=== PATIENT | female | born 1945 | race Caucasian/White ===

== ENCOUNTER 2016-10-08 03:32 | Emergency (ER) | payer BC, MEDICARE ==
[2016-10-08 03:55] VITALS: BP 146/94
--- NOTE | 2016-10-08 04:30 | EDM.PDOC ---
ED HPI GENERAL MEDICAL PROBLEM - General Chief Complaint: Cardiovascular Problem Stated Complaint: HIGH BLOOD PRESSURE Time Seen by Provider: 10/08/16 03:39 Source of Information: Reports: Patient History Limitations: Reports: No Limitations - History of Present Illness INITIAL COMMENTS - FREE TEXT/NARRATIVE: The patient presents with a headache, neck pain and elevated blood pressure. She says for a few days she has had left sided neck pain and bilateral protestant headache. She was pulling some weeds a few days ago and she thinks that may be the cause. She took some zyrtec before bed and this morning she woke up with the headache, neck pain and her BP was high in the high 140s systolic. Here her BP was 146/94. She thought she may be having a stroke and came in to be evaluated. She denies, fever, chills, cough, congestion, shortness of breath, nausea or vomiting. She has a little pain to her right chest. She fell a few days ago on vacation while sitting in a folding chair and hit her chest. She has no visual changes, numbness or weakness. She feels much better now. Onset: gradual Duration: Day(s): Location: Reports: head, neck Quality: Reports: Sharp Severity: moderate Improves with: Reports: None Worsens with: Reports: None Associated Symptoms: Reports: chest pain (Right side from a fall), headaches. Denies: cough, fever/chills, nausea/vomiting, shortness of breath, weakness Head Pain Score (Numeric/FACES): 5 Neck Pain Score (Numeric/FACES): 3 Right Breast Pain Score (Numeric/FACES): 1 - Related Data Allergies Allergy/AdvReac Type Severity Reaction Status Date / Time Penicillins Allergy Hives Verified 10/08/16 03:46 sulfanilamide [Sulfanilamide] Allergy Hives Verified 03/13/15 07:21 Home Meds: Home Meds Levothyroxine 25 mcg PO DAILY 11/09/13 [History] Simvastatin [Simvastatin] 20 mg PO DAILY 11/09/13 [History] Cetirizine [ZyrTEC] 10 mg PO DAILY PRN 03/13/15 [History] Ranitidine [Zantac] 150 mg PO BID #60 tab 03/13/15 [Rx] ALPRAZolam [Xanax] 0.5 mg PO BEDTIME PRN 10/08/16 [History] Past Medical History Cardiovascular History: Reports: High cholesterol Endocrine/Metabolic History: Reports: Hyperthyroidism - Past Surgical History GI Surgical History: Reports: Colonoscopy Social & Family History - Tobacco Use Smoking Status *Q: Former Smoker Years of Tobacco use: 10 Used Tobacco, but Quit: No Second Hand Smoke Exposure: Yes - Alcohol Use Days Per Week of Alcohol Use: 0 - Recreational Drug Use Recreational Drug Use: No ED ROS GENERAL - Review of Systems Review Of Systems: See Below Constitutional: Reports: No Symptoms HEENT: Reports: No Symptoms Respiratory: Reports: No Symptoms Cardiovascular: Reports: No Symptoms Endocrine: Reports: No Symptoms GI/Abdominal: Reports: No Symptoms : Reports: No Symptoms Musculoskeletal: Reports: Neck Pain Skin: Reports: No Symptoms Neurological: Reports: Headache ED EXAM, GENERAL - Physical Exam Exam: See Below Exam Limited By: No Limitations General Appearance: Alert, No Apparent Distress Ears: Normal External Exam Nose: Normal Inspection Head: Atraumatic, Normocephalic, Other (no temporal tenderness) Neck: Non-Tender, Other (When she looks to the right she has some pain) Respiratory/Chest: No Respiratory Distress, Lungs Clear, Normal Breath Sounds Cardiovascular: Regular Rate, Rhythm, No Edema, No Murmur GI/Abdominal: Soft, Non-Tender, No Organomegaly, No Mass Back Exam: Normal Inspection Extremities: Normal Inspection Neurological: Alert, Oriented, No Motor/Sensory Deficits Skin Exam: Warm, Dry EKG INTERPRETATION EKG Date: 10/08/16 Time: 04:01 Rhythm: NSR Rate (beats/min): 79 [place]: normal P-wave: present QRS: normal ST-T: normal QT: normal Course - Vital Signs Last Recorded V/S: Last Vital Signs Temp 98.5 F 10/08/16 03:42 Pulse 78 10/08/16 03:54 Resp 18 10/08/16 03:54 BP 146/94 H 10/08/16 03:54 Pulse Ox 96 10/08/16 03:54 - Orders/Labs/Meds Orders: Active Orders 24 hr Category Date Time Status Cardiac Monitoring [RC] . DIRECTED Care 10/08/16 04:13 Active EKG 12 Lead [EKG Documentation Completion] [RC] STAT Care 10/08/16 03:58 Active Labs: Laboratory Tests 10/08/16 10/08/1617 Range/Units 04:20 04:20 04:20 WBC 4.40 (3.98-10.04) K/mm3 RBC 4.54 (3.98-5.22) M/mm3 Hgb 13.3 (11.2-15.7) gm/L Hct 41.5 (34.1-44.9) % MCV 91.4 (79.4-94.8) fl MCH 29.3 (25.6-32.2) pg MCHC 32.0 L (32.2-35.5) g/dl RDW Std Deviation 46.0 (36.4-46.3) fL Plt Count 189 (182-369) K/mm3 MPV 9.9 (9.4-12.3) fl Neut % (Auto) 38.0 (34.0-71.1) % Lymph % (Auto) 49.5 (19.3-51.7) % [place]ukes % (Auto) 6.8 (4.7-12.5) % Eos % (Auto) 4.8 (0.7-5.8) Baso % (Auto) 0.7 (0.1-1.2) % Neut # (Auto) 1.67 (1.56-6.13) K/mm3 Lymph # (Auto) 2.18 (1.18-3.74) K/mm3 [place]ukes # (Auto) 0.30 (0.24-0.36) K/mm3 Eos # (Auto) 0.21 (0.04-0.36) K/mm3 Baso # (Auto) 0.03 (0.01-0.08) K/mm3 ESR 7 (0-20) mm/hr Sodium 141 (136-145) mEq/L Potassium 3.9 (3.5-5.1) mEq/L Chloride 107 (98-107) mEq/L Carbon Dioxide 28 (21-32) mEq/L Anion Gap 9.9 (5-15) BUN 18 (7-18) mg/dL Creatinine 0.8 (0.55-1.02) mg/dL Est Cr Clr Drug Dosing TNP Estimated GFR (MDRD) > 60 (>60) mL/min BUN/Creatinine Ratio 22.5 H (14-18) Glucose 105 (80-115) mg/dL Calcium 8.5 (8.5-10.1) mg/dL Total Bilirubin 0.3 (0.2-1.0) mg/dL AST 11 L (15-37) U/L ALT 21 (14-59) U/L Alkaline Phosphatase 63 (46-116) U/L Troponin I < 0.017 (0.00-0.056) ng/mL C-Reactive Protein < 0.2 (<1.0) mg/dL Total Protein 6.4 (6.4-8.2) g/dl Albumin 3.5 (3.4-5.0) g/dl Globulin 2.9 gm/dL Albumin/Globulin Ratio 1.2 (1-2) - Re-Assessments/Exams Free Text/Narrative Re-Assessment/Exam: 10/08/16 04:31 I ordered an EKG that showed a NSR with no acute changes. I will get some labs. She did not want a CT of her head. 10/08/16 05:22 Her CBC and CMP look good. Her CRP and sed rate are normal. Her BP is better and she feels better. I will discharge her home. Departure - Departure Time of Disposition: 17:25 Disposition: Home, Self-Care 01 Condition: good Clinical Impression: Neck pain Headache Qualifiers: Headache type: unspecified Headache chronicity pattern: acute headache Intractability: not intractable Qualified Code(s): R51 - Headache Referrals: Chris Robison MD [Primary Care Provider] - 1 Week Forms: ED Department Discharge, Return to Work/School Form Additional Instructions: Take your medication as prescribed. Follow up with your doctor in 1 week. Please return if you are worse. - My Orders Last 24 Hours: My Active Orders 10/08/16 03:58 EKG 12 Lead [EKG Documentation Completion] [RC] STAT 10/08/16 04:13 Cardiac Monitoring [RC] . DIRECTED - Assessment/Plan Last 24 Hours: My Active Orders 10/08/16 03:58 EKG 12 Lead [EKG Documentation Completion] [RC] STAT 10/08/16 04:13 Cardiac Monitoring [RC] . DIRECTED
== END 2016-10-08 05:35 | disposition home or self-care (01) ==
LOC: JD.ED 03:32
DX: M54.2 Cervicalgia (principal); R51 Headache; E78.00 Pure hypercholesterolemia, unspecified; E05.90 Thyrotoxicosis, unspecified without thyrotoxic crisis or storm; Z79.899 Other long term (current) drug therapy; Z88.2 Allergy status to sulfonamides; Z88.0 Allergy status to penicillin; Z87.891 Personal history of nicotine dependence
CPT/HCPCS: 36415; 80053; 84484; 85025; 85652; 86140; 93005; 99283; 99284-25

== ENCOUNTER 2016-10-10 21:22 | Emergency (ER) | payer BC, MEDICARE ==
[2016-10-10 21:52] VITALS: BP 168/103
--- NOTE | 2016-10-11 00:27 | EDM.PDOC ---
ED HPI GENERAL MEDICAL PROBLEM - General Chief Complaint: Headache Stated Complaint: HIGH BLOOD PRESSURE HEADACHE Time Seen by Provider: 10/10/16 21:44 Source of Information: Reports: Patient, Family (), RN Notes Reviewed History Limitations: Reports: No Limitations - History of Present Illness INITIAL COMMENTS - FREE TEXT/NARRATIVE: The patient states that she was seen in this ED 10/08/2016 for elevated blood pressure along with pressure felt at the back of her head, and generalized exhaustion. Medical records indicate that her blood pressure was 146/94. She was concerned that she was having a stroke. Workup included a CBC , CMP, troponin, CRP, ESR, and an ECG. All were unremarkable. Without treatment, the patient's symptoms resolved, and she was discharged home. She now returns complaining of a throbbing headache for about 45 minutes, pain in her posterior neck for about a week, and the sensation of being out of breath on and off for several days. Her dyspnea is not exertional; she and her walked about 1 mile today without difficulty, and she ordinarily walks about 3 miles a day without problems. No recent fever, although she has felt some chills. She feels shaky. No chest pain or palpitations. No nausea, vomiting, constipation, or diarrhea, although she does report some indigestion. Her initial blood pressure is 168/103 with a heart rate of 109 bpm. She states that she does not have a history of hypertension, and is not on an antihypertensive medication. She has a history of anxiety disorder and takes Xanax as needed. She has been on Xanax for about 20 years. 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 Neck Pain Score (Numeric/FACES): 8 - Related Data Allergies Allergy/AdvReac Type Severity Reaction Status Date / Time Penicillins Allergy Hives Verified 10/10/16 21:43 sulfanilamide [Sulfanilamide] Allergy Hives Verified 10/10/16 21:43 Home Meds: Home Meds Levothyroxine 25 mcg PO DAILY 11/09/13 [History] Simvastatin [Simvastatin] 20 mg PO DAILY 11/09/13 [History] Cetirizine [ZyrTEC] 10 mg PO DAILY PRN 03/13/15 [History] ALPRAZolam [Xanax] 0.5 mg PO BEDTIME PRN 10/08/16 [History] Ranitidine [Zantac] 150 mg PO BID PRN 10/10/16 [History] Past Medical History HEENT History: Reports: Allergic Rhinitis Cardiovascular History: Reports: High Cholesterol Gastrointestinal History: Reports: GERD 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[employer]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: Reports: Ectopic Psychiatric History: Reports: Anxiety Endocrine/Metabolic History: Reports: Hypothyroidism - Past Surgical History HEENT Surgical History: Reports: Tonsillectomy GI Surgical History: Reports: Colonoscopy Female Surgical History: Reports: D&C (x 1), Other (See Below) (Ectopic ) Social & Family History - Family History Respiratory: Reports: COPD, Interstitial Lung Disease Neurological: Reports: Cerebral Aneurysms, CVA Oncologic: Reports: Brain - Tobacco Use Smoking Status *Q: Former Smoker Tobacco Use Within Last Twelve Months: No Years of Tobacco use: 20 Packs/Tins Daily: 0.5 Used Tobacco, but Quit: Yes Month Tobacco Last Used: 08/1976 Second Hand Smoke Exposure: Yes - Caffeine Use Caffeine Use: Reports: Coffee - Alcohol Use Alcohol Use History: Yes Days Per Week of Alcohol Use: 0 Alcohol Use Frequency: Socially - Recreational Drug Use Recreational Drug Use: No - Living Situation & Occupation Living situation: Reports: , with Spouse Occupation: Employed ([email or web address] at [employer]) ED ROS GENERAL - Review of Systems Review Of Systems: See Below Constitutional: Reports: No Symptoms HEENT: Reports: No Symptoms Respiratory: Reports: No Symptoms Cardiovascular: Reports: No Symptoms Endocrine: Reports: No Symptoms GI/Abdominal: Reports: Diarrhea (Occasional), Nausea (Occasional), Vomiting ( Occasional) : Reports: No Symptoms Musculoskeletal: Reports: No Symptoms Skin: Reports: No Symptoms Neurological: Reports: No Symptoms Psychiatric: Reports: No Symptoms Hematologic/Lymphatic: Reports: No Symptoms Immunologic: Reports: No Symptoms ED EXAM, GENERAL - Physical Exam Exam: See Below Exam Limited By: No Limitations General Appearance: Alert, WD/WN, No Apparent Distress, Anxious Eye Exam: Bilateral Eye: Normal Inspection Ears: Normal External Exam, Normal Canal, Hearing Grossly Normal, Normal TMs Ear Exam: Bilateral Ear: Auricle Normal, Canal Normal, TM normal Nose: Normal Inspection, Normal Mucosa, No Blood Throat/Mouth: Normal Inspection, Normal Lips, Normal Teeth, Normal Gums, Normal Oropharynx, Normal Voice, No Airway Compromise Head: Atraumatic, Normocephalic Neck: Normal Inspection, Supple, Non-Tender, Full Range of Motion Respiratory/Chest: No Respiratory Distress, Lungs Clear, Normal Breath Sounds, No Accessory Muscle Use Cardiovascular: Normal Peripheral Pulses, Regular Rate, Rhythm, No Gallop, No JVD, No Murmur, No Rub Peripheral Pulses: 4+: Radial (L), Radial (R) GI/Abdominal: Normal Bowel Sounds, Soft, Non-Tender, No Organomegaly, No Distention, No Abnormal Bruit, No Mass (Female) Exam: Deferred Rectal (Female) Exam: Deferred Back Exam: Normal Inspection, Full Range of Motion, NT Extremities: Normal Inspection, Normal Range of Motion, No Pedal Edema, Normal Capillary Refill Neurological: Alert, Oriented, Normal Cognition, No Motor/Sensory Deficits Psychiatric: Normal Affect, Anxious Skin Exam: Warm, Dry, Intact, Normal Color, No Rash Lymphatic: No Adenopathy EKG INTERPRETATION EKG Date: 10/10/16 Time: 22:17 Rhythm: NSR Rate (beats/min): 93 [place]: normal P-wave: present QRS: normal ST-T: normal QT: normal Comparison: no change (10/08/2016) Course - Vital Signs Last Recorded V/S: Last Vital Signs Temp 36.1 C 10/10/16 21:46 Pulse 109 H 10/10/16 21:46 Resp 16 10/10/16 21:46 BP 168/103 H 10/10/16 21:46 Pulse Ox 96 10/10/16 21:46 Orthostatic Blood Pressure [ 155/99 Standing] Orthostatic Blood Pressure [ 170/102 Sitting] Orthostatic Blood Pressure [ 147/92 Supine] - Orders/Labs/Meds Orders: Active Orders 24 hr Category Date Time Status EKG Documentation Completion [RC] STAT Care 10/10/16 21:59 Active Orthostatic Vital Signs [RC] STAT Care 10/10/16 21:59 Active Orthostatic Vital Signs [RC] STAT Care 10/11/16 00:58 Active Chest 2V [CR] Stat Exams 10/10/16 21:59 Taken Labs: Laboratory Tests 10/10/16 10/10/16 10/10/16 Range/Units 21:20 22:15 22:15 WBC 5.38 (3.98-10.04) K/mm3 RBC 4.46 (3.98-5.22) M/mm3 Hgb 13.3 (11.2-15.7) gm/L Hct 40.9 (34.1-44.9) % MCV 91.7 (79.4-94.8) fl MCH 29.8 (25.6-32.2) pg MCHC 32.5 (32.2-35.5) g/dl RDW Std Deviation 46.0 (36.4-46.3) fL Plt Count 199 (182-369) K/mm3 MPV 10.1 (9.4-12.3) fl Neutrophils % (Manual) 39 L (40-60) % Band Neutrophils % 0 (0-10) % Lymphocytes % (Manual) 52 H (20-40) % Monocytes % (Manual) 2 (2-10) % Eosinophils % (Manual) 7 H (0.7-5.8) % Basophils % (Manual) 0 L (0.1-1.2) Platelet Estimate Adequate RBC Morph Comment Normal PT 10.3 (8.0-13.0) SECONDS INR 0.95 APTT 25 (22-36) SECONDS D-Dimer, Quantitative 0.40 (0.19-0.59) mg/L Puncture Site Lt radial ABG pH 7.44 (7.35-7.45) ABG pCO2 38.4 (35.0-45.0) mmHg ABG pO2 64.0 L (80.0-100.0) mmHg ABG HCO3 25.6 (22.0-26.0) meq/L ABG O2 Saturation 94.4 L (96.0-97.0) % ABG Base Excess 2.0 (-2-2.0) Cal Test Positive A-a Gradient 22 mmHg O2 Delivery Device Room air FiO2 21.00 (21.00-100.00) % Sodium (136-145) mEq/L Potassium (3.5-5.1) mEq/L Chloride (98-107) mEq/L Carbon Dioxide (21-32) mEq/L Anion Gap (5-15) BUN (7-18) mg/dL Creatinine (0.55-1.02) mg/dL Est Cr Clr Drug Dosing mL/min Estimated GFR (MDRD) (>60) mL/min BUN/Creatinine Ratio (14-18) Glucose (80-115) mg/dL Calcium (8.5-10.1) mg/dL Magnesium (1.8-2.4) mg/dl Total Bilirubin (0.2-1.0) mg/dL AST (15-37) U/L ALT (14-59) U/L Alkaline Phosphatase (46-116) U/L Troponin I (0.00-0.056) ng/mL B-Natriuretic Peptide (0-100) pg/mL Total Protein (6.4-8.2) g/dl Albumin (3.4-5.0) g/dl Globulin gm/dL Albumin/Globulin Ratio (1-2) TSH 3rd Generation (0.358-3.74) uIU/mL Urine Color (Yellow) Urine Appearance (Clear) Urine pH (5.0-8.0) Ur Specific [place] (1.005-1.030) Urine Protein (Negative) Urine Glucose (UA) (Negative) Urine Ketones (Negative) Urine Occult Blood (Negative) Urine Nitrite (Negative) Urine Bilirubin (Negative) Urine Urobilinogen (0.2-1.0) Ur Leukocyte Esterase (Negative) Urine RBC (0-5) /hpf Urine WBC (0-5) /hpf Ur Epithelial Cells (0-5) /hpf Urine Bacteria (FEW) /hpf Urine Mucus (FEW) /hpf 10/10/16 10/10/16 10/10/16 Range/Units 22:15 22:15 23:09 WBC (3.98-10.04) K/mm3 RBC (3.98-5.22) M/mm3 Hgb (11.2-15.7) gm/L Hct (34.1-44.9) % MCV (79.4-94.8) fl MCH (25.6-32.2) pg MCHC (32.2-35.5) g/dl RDW Std Deviation (36.4-46.3) fL Plt Count (182-369) K/mm3 MPV (9.4-12.3) fl Neutrophils % (Manual) (40-60) % Band Neutrophils % (0-10) % Lymphocytes % (Manual) (20-40) % Monocytes % (Manual) (2-10) % Eosinophils % (Manual) (0.7-5.8) % Basophils % (Manual) (0.1-1.2) Platelet Estimate RBC Morph Comment PT (8.0-13.0) SECONDS INR APTT (22-36) SECONDS D-Dimer, Quantitative (0.19-0.59) mg/L Puncture Site ABG pH (7.35-7.45) ABG pCO2 (35.0-45.0) mmHg ABG pO2 (80.0-100.0) mmHg ABG HCO3 (22.0-26.0) meq/L ABG O2 Saturation (96.0-97.0) % ABG Base Excess (-2-2.0) Cal Test A-a Gradient mmHg O2 Delivery Device FiO2 (21.00-100.00) % Sodium 142 (136-145) mEq/L Potassium 3.9 (3.5-5.1) mEq/L Chloride 108 H (98-107) mEq/L Carbon Dioxide 28 (21-32) mEq/L Anion Gap 9.9 (5-15) BUN 15 (7-18) mg/dL Creatinine 1.0 (0.55-1.02) mg/dL Est Cr Clr Drug Dosing 40.07 mL/min Estimated GFR (MDRD) 55 (>60) mL/min BUN/Creatinine Ratio 15.0 (14-18) Glucose 121 H (80-115) mg/dL Calcium 8.6 (8.5-10.1) mg/dL Magnesium 2.0 (1.8-2.4) mg/dl Total Bilirubin 0.2 (0.2-1.0) mg/dL AST 14 L (15-37) U/L ALT 20 (14-59) U/L Alkaline Phosphatase 66 (46-116) U/L Troponin I < 0.017 (0.00-0.056) ng/mL B-Natriuretic Peptide 18 (0-100) pg/mL Total Protein 6.7 (6.4-8.2) g/dl Albumin 3.7 (3.4-5.0) g/dl Globulin 3.0 gm/dL Albumin/Globulin Ratio 1.2 (1-2) TSH 3rd Generation 5.209 H (0.358-3.74) uIU/mL Urine Color Yellow (Yellow) Urine Appearance Clear (Clear) Urine pH 7.0 (5.0-8.0) Ur Specific [place] 1.020 (1.005-1.030) Urine Protein Negative (Negative) Urine Glucose (UA) Negative (Negative) Urine Ketones Negative (Negative) Urine Occult Blood Negative (Negative) Urine Nitrite Negative (Negative) Urine Bilirubin Negative (Negative) Urine Urobilinogen 0.2 (0.2-1.0) Ur Leukocyte Esterase Trace H (Negative) Urine RBC Not seen (0-5) /hpf Urine WBC 0-5 (0-5) /hpf Ur Epithelial Cells 0-5 (0-5) /hpf Urine Bacteria Few (FEW) /hpf Urine Mucus Not seen (FEW) /hpf Meds: Medications Discontinued Medications Generic Name Dose Route Start Last Admin Trade Name Freq PRN Reason Stop Dose Admin Sodium Chloride 500 mls @ 1,000 mls/hr 10/11/16 00:58 10/11/16 01:15 Normal Saline IV 10/11/16 01:27 1,000 mls/hr .BOLUS ONE Administration - Radiology Interpretation Free Text/Narrative:: Two-view chest radiograph appears to be grossly normal. Cardiac silhouette is within normal limits. No pulmonary vascular congestion. No pleural effusions. No focal infiltrate. No pneumothorax. Formal read per the Radiologist pending. - Re-Assessments/Exams Free Text/Narrative Re-Assessment/Exam: 10/11/16 00:57 While the patient's blood pressure elin from a supine to standing, her heart rate increased by 37 bpm, indicating orthostasis. I will give a 500 mL bolus and recheck the orthostatics. 10/11/16 02:04 Following a 500 mL bolus of normal saline, repeat orthostatics are negative. 10/11/16 02:28 Test results discussed with the patient and her . The patient's oxygen saturation has been noted to be about 98%, concerning for hyperventilation, which is usually caused by anxiety, although can be caused by a variety of medical conditions including metabolic acidosis, hypocalcemia, hypoglycemia, hyperthyroidism, liver failure, severe anemia, sepsis, acute coronary event, pneumothorax, pneumonia, dysrhythmia, PE, and CHF. These have been ruled out. I believe the patient has an inadequately treated anxiety disorder. I am not recommending that she precipitously discontinue her Xanax, but I am recommending that she discuss with her PCP treatment options and eventual discontinuation of Xanax. We also discussed the topic of hypertension. It does not appear that the patient has clinical hypertension, however, I discussed how she should properly measure itd if she wants to check it. Departure - Departure Time of Disposition: 02:30 Disposition: Home, Self-Care 01 Condition: good Clinical Impression: Elevated TSH - Discharge Information Referrals: Chris Robison MD [Primary Care Provider] - Forms: ED Department Discharge Additional Instructions: You were seen in the emergency room for elevated blood pressure, a headache, a sore neck, and feeling out of breath. Workup in the ER included blood work, an ABG, a urinalysis, an ECG, a chest x- ray, and positional blood pressure checked. Your workup was remarkable for a mildly elevated TSH level of 5.209, and your orthostatics were positive, indicating intravascular depletion. Your orthostatics resolved after an IV fluid bolus. We recommend that you try to stay adequately hydrated. Your symptoms are MOST LIKELY due to inadequately treated anxiety. We recommend that you discuss with your PCP long-term treatment options, such as an SSRI, and eventual discontinuation of Xanax. It does not appear that you have hypertension, however, if you want to check your blood pressure, it should be done under restful conditions, 2-3 times a week, for 2-3 weeks. If any other problems, please do not hesitate to return to the ER. - My Orders Last 24 Hours: My Active Orders 10/10/16 21:59 EKG Documentation Completion [RC] STAT Orthostatic Vital Signs [RC] STAT Chest 2V [CR] Stat 10/11/16 00:58 Orthostatic Vital Signs [RC] STAT - Assessment/Plan Last 24 Hours: My Active Orders 10/10/16 21:59 EKG Documentation Completion [RC] STAT Orthostatic Vital Signs [RC] STAT Chest 2V [CR] Stat 10/11/16 00:58 Orthostatic Vital Signs [RC] STAT
[2016-10-11] MEDS ORDERED: Sodium Chloride 0.9% 500 ML IV ONE (00:58)
--- NOTE | 2016-10-11 09:49 | CR ---
Chest: Two views of the chest were obtained. Comparison: Previous chest x-ray of 03/13/15. Heart size is normal. Prominent tortuosity of the thoracic aorta is seen. Minimal atelectasis is noted within the lateral right costophrenic angle. Lungs otherwise are clear. Bony structures are unremarkable for the patient's age. On the lateral view, lungs are hyperinflated compatible with emphysematous change. Impression: 1. Emphysematous change. Other incidental findings. Nothing acute is identified. Diagnostic code #2
== END 2016-10-11 02:50 | disposition home or self-care (01) ==
LOC: JD.ED 21:22
DX: R94.6 Abnormal results of thyroid function studies (principal); K21.9 Gastro-esophageal reflux disease without esophagitis; E03.9 Hypothyroidism, unspecified; E78.00 Pure hypercholesterolemia, unspecified; F41.9 Anxiety disorder, unspecified; Z88.0 Allergy status to penicillin; Z79.899 Other long term (current) drug therapy; Z87.891 Personal history of nicotine dependence
CPT/HCPCS: 36415; 36600; 71020; 80053; 81001; 82803; 83735; 83880; 84443; 84484; 85025; 85379; 85610; 85730; 93005; 99284; J7040; 99283

== ENCOUNTER 2018-08-21 19:36 | Emergency (ER) | payer BC, MEDICARE ==
[2018-08-21 19:48] VITALS: BP 153/89
[2018-08-21] MEDS ORDERED: Dextrose 5%-Lactated Ringers 1,000 ML IV SCH (20:00)
[2018-08-21] MEDS ORDERED: cefOXitin 2 GM in Premix Bag 1 BAG IV ONE (20:09)
--- NOTE | 2018-08-21 20:10 | EDM.PDOC ---
ED HPI GENERAL MEDICAL PROBLEM - General Chief Complaint: Cardiovascular Problem Stated Complaint: HEART PALPATATIONS Time Seen by Provider: 08/21/18 19:50 Source of Information: Reports: Patient, Family (spouse) History Limitations: Reports: No Limitations - History of Present Illness INITIAL COMMENTS - FREE TEXT/NARRATIVE: 72-year-old female presents to the ED in the accompaniment of her . She reports that she developed palpitations with feeling of her heart causing and skipping beats tonight after taking first dose of Flagyl and Cipro. This medication was prescribed after diagnosis of acute diverticulitis identified on CT today. He has had diffuse left lower abdominal pain for the better part of 3 days. She thinks that she's been eating adequately. She has not had any diarrhea. She feels more constipated involvements are very painful. She has a significant pressure in the rectum pick your feel like if she could have a good bowel movement it would make the pain go away. Ventriculitis at least once in the past. Been bothered by palpitations off and on for the last several months. She's had investigation by way of Holter monitor thyroid function studies with no positive findings. Palpitations were bad enough to make her dizzy or lightheaded or short of breath. He did make her well aware of irregularities in her chest which created some degree of anxiety. Onset: Today Onset Date: 08/21/18 Onset Time: 18:00 Duration: Hour(s): Location: Reports: Chest (Palpitations with filling of heart skipping and causing at times.) Quality: Reports: Other Severity: Moderate (No associated pain) Improves with: Reports: None Worsens with: Reports: None Context: Denies: Activity, Exercise, Lifting, Sick Contact, Trauma, Other Associated Symptoms: Reports: Fever/Chills, Loss of Appetite, Malaise. 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 (see below) (None.) Lower Abdominal Pain Score (Numeric/FACES): 5 - Related Data Allergies Allergy/AdvReac Type Severity Reaction Status Date / Time Penicillins Allergy Hives Verified 08/21/18 19:48 sulfanilamide [Sulfanilamide] Allergy Hives Verified 08/21/18 19:48 Home Meds: Home Meds Levothyroxine 25 mcg PO DAILY 11/09/13 [History] Simvastatin 20 mg PO DAILY 11/09/13 [History] Cetirizine [ZyrTEC] 10 mg PO DAILY PRN 03/13/15 [History] ALPRAZolam [Xanax] 0.5 mg PO BEDTIME PRN 10/08/16 [History] Ranitidine [Zantac] 150 mg PO BID PRN 10/10/16 [History] Ciprofloxacin HCl [Cipro] 500 mg PO DAILY 08/21/18 [History] Clindamycin HCl 300 mg PO TID #21 capsule 08/21/18 [Rx] Metoprolol Tartrate 25 mg PO DAILY #30 tablet 08/21/18 [Rx] metroNIDAZOLE [Flagyl] 250 mg PO DAILY 08/21/18 [History] Past Medical History HEENT History: Reports: Allergic Rhinitis Cardiovascular History: Reports: High Cholesterol Gastrointestinal History: Reports: Diverticulosis, GERD 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: Ectopic Psychiatric History: Reports: Anxiety Endocrine/Metabolic History: Reports: Hypothyroidism - Past Surgical History HEENT Surgical History: Reports: Tonsillectomy GI Surgical History: Reports: Colonoscopy Female Surgical History: Reports: D&C, Other (See Below) Social & Family History - Family History Respiratory: Reports: COPD, Interstitial Lung Disease Neurological: Reports: Cerebral Aneurysms, CVA Oncologic: Reports: Brain - Tobacco Use Smoking Status *Q: Never Smoker - Caffeine Use Caffeine Use: Reports: Coffee - Recreational Drug Use Recreational Drug Use: No - Living Situation & Occupation Living situation: Reports: , with Spouse Occupation: Employed ([employer] at [employer]) [facility] - Review of Systems Review Of Systems: See Below Constitutional: Reports: Chills, Malaise, Weakness, Fatigue, Decreased Appetite HEENT: Reports: Glasses (Only for reading) Respiratory: Reports: No Symptoms Cardiovascular: Reports: No Symptoms Endocrine: Reports: No Symptoms GI/Abdominal: Reports: Abdominal Pain (Left lower quadrant abdominal pain gradually worsening over the last 3 days. Diagnosed with acute diverticulitis today by CT scan done here in our hospital.), Other (Rectal pressure discomfort. ) : Reports: No Symptoms Musculoskeletal: Reports: No Symptoms Skin: Reports: No Symptoms Neurological: Reports: No Symptoms Psychiatric: Reports: Anxiety Hematologic/Lymphatic: Reports: No Symptoms Immunologic: Reports: No Symptoms ED EXAM, GENERAL - Physical Exam Exam: See Below Exam Limited By: No Limitations General Appearance: Alert, WD/WN, Anxious, Other (However hands are cool to touch.) Eye Exam: Bilateral Eye: Normal Inspection Throat/Mouth: Normal Inspection, Normal Lips, Normal Oropharynx, Other Head: Atraumatic, Normocephalic (Tongue is only slightly dry.) Neck: Normal Inspection, Supple, Non-Tender, Full Range of Motion. No: Lymphadenopathy (L), Lymphadenopathy (R) Respiratory/Chest: No Respiratory Distress, Lungs Clear, Normal Breath Sounds, No Accessory Muscle Use Cardiovascular: Normal Peripheral Pulses, Regular Rate, Rhythm, No Edema, No Gallop, No Murmur, No Rub, Other (Occasional PACs identified on the monitor.) Peripheral Pulses: 2+: Posterior Tibial (L), Posterior Tibial (R), Dorsalis Pedis (L), Dorsalis Pedis (R), 3+: Carotid (L), Carotid (R) GI/Abdominal: Distended (Very slightly distended and mildly tympanitic to percussion.), Guarding (Throughout the left lower quadrant), Rebound (Has peritoneal signs in the left lower quadrant. Even light percussion in the left or quadrant causes exquisite pain.), Abnormal Bowel Sounds (Bowel sounds are decreased from the norm.) Back Exam: Normal Inspection, Full Range of Motion. No: CVA Tenderness (L), CVA Tenderness (R) Extremities: Normal Inspection, Normal Range of Motion, Non-Tender, No Pedal Edema Neurological: Alert, Oriented, CN II-XII Intact, Normal Cognition, Other. No: Normal Gait Psychiatric: Normal Affect (Walking bent over and slowly), Anxious Skin Exam: Warm, Dry, Intact, Normal Color, No Rash EKG INTERPRETATION EKG Date: 08/21/18 Time: 20:15 Rhythm: NSR Rate (Beats/Min): 88 [place]: Normal P-Wave: Present QRS: Normal ST-T: Normal QT: Normal EKG Interpretation Comments: Normal ECG. Course - Vital Signs Last Recorded V/S: Last Vital Signs Temp 36.6 C 08/21/18 19:44 Pulse 107 H 08/21/18 19:44 Resp 16 08/21/18 19:44 BP 153/89 H 08/21/18 19:44 Pulse Ox 95 08/21/18 19:44 - Orders/Labs/Meds Orders: Active Orders 24 hr Category Date Time Status EKG Documentation Completion [RC] STAT Care 08/21/18 20:09 Active Dextrose 5%-Lactated Ringers 1,000 ml Med 08/21/18 20:00 Active IV ASDIRECTED Medication Orders Dextrose/Lactated Ringer's (Dextrose 5%-Lactated Ringers) 1,000 mls @ 999 mls/ hr IV ASDIRECTED DHRUV Last Admin: 08/21/18 20:33 Dose: 999 mls/hr Labs: Laboratory Tests 08/21/18 08/21/18 Range/Units 20:45 20:45 WBC 9.10 (3.98-10.04) K/mm3 RBC 4.76 (3.98-5.22) M/mm3 Hgb 14.1 (11.2-15.7) gm/L Hct 43.0 (34.1-44.9) % MCV 90.3 (79.4-94.8) fl MCH 29.6 (25.6-32.2) pg MCHC 32.8 (32.2-35.5) g/dl RDW Std Deviation 45.8 (36.4-46.3) fL Plt Count 220 (182-369) K/mm3 MPV 10.3 (9.4-12.3) fl Neutrophils % (Manual) 71 H (40-60) % Band Neutrophils % 0 (0-10) % Lymphocytes % (Manual) 17 L (20-40) % Atypical Lymphs % 0 % Monocytes % (Manual) 11 H (2-10) % Eosinophils % (Manual) 1 (0.7-5.8) % Basophils % (Manual) 0 L (0.1-1.2) Platelet Estimate Adequate RBC Morph Comment Normal Sodium 142 (136-145) mEq/L Potassium 3.4 L (3.5-5.1) mEq/L Chloride 104 (98-107) mEq/L Carbon Dioxide 28 (21-32) mEq/L Anion Gap 13.4 (5-15) BUN 10 (7-18) mg/dL Creatinine 0.8 (0.55-1.02) mg/dL Est Cr Clr Drug Dosing TNP Estimated GFR (MDRD) > 60 (>60) mL/min BUN/Creatinine Ratio 12.5 L (14-18) Glucose 117 H (80-115) mg/dL Calcium 9.4 (8.5-10.1) mg/dL Magnesium 2.1 (1.8-2.4) mg/dl Total Bilirubin 0.6 (0.2-1.0) mg/dL AST 36 (15-37) U/L ALT 48 (14-59) U/L Alkaline Phosphatase 95 (46-116) U/L C-Reactive Protein 5.2 H* (<1.0) mg/dL Total Protein 7.3 (6.4-8.2) g/dl Albumin 3.5 (3.4-5.0) g/dl Globulin 3.8 gm/dL Albumin/Globulin Ratio 0.9 L (1-2) Meds: Medications Generic Name Dose Route Start Last Admin Trade Name Freq PRN Reason Stop Dose Admin Dextrose/Lactated Ringer's 1,000 mls @ 999 mls/hr 08/21/18 20:00 08/21/18 20: 33 Dextrose 5%-Lactated Ringers IV 999 mls/hr ASDIRECTED DHRUV Administration Discontinued Medications Generic Name Dose Route Start Last Admin Trade Name Freq PRN Reason Stop Dose Admin Hydromorphone HCl 0.5 mg 08/21/18 20:31 08/21/18 21:09 Dilaudid IVPUSH 08/21/18 20:32 0.5 mg ONETIME ONE Administration Cefoxitin Sodium 2 gm/ Premix 50 mls @ 100 mls/hr 08/21/18 20:09 08/21/18 20: 34 IV 08/21/18 20:38 100 mls/hr ONETIME ONE Administration Magnesium Citrate 240 ml 08/21/18 21:09 08/21/18 21:14 Citrate Of Magnesia PO 08/21/18 21:10 240 ml ONETIME ONE Administration Metoclopramide HCl 5 mg 08/21/18 20:31 08/21/18 21:08 Reglan IVPUSH 08/21/18 20:32 5 mg ONETIME ONE Administration - Radiology Interpretation Free Text/Narrative:: 72-year-old female presents to the ED due to palpitations that seemed to develop after she took her first dose of Cipro and Flagyl this afternoon before eating a little bit for supper. Appendectomy feeling well for the last 3 and half days was diagnosed by CT today of having acute diverticulitis have a look at the CT scan as it was done in our hospital. Her on Cipro 500 mg twice a day and Flagyl 500 mg 3 times a day of which she has taken 1 dose of each tablet. Associated fever but some chills. She did have lab work done to clinic and we' ll try and obtain these results. In the ED on the monitor she shows a few PACs. For the most part and is sinus rhythm in the high 80s. We did go up as high as 116/m but was sinus tachycardia in the ED. She does have peritoneal signs on palpation of her left hemiabdomen. Will give a dose of antibiotics --cefoxitin 2 g IV. Will try and bring up her labs on her cell phone. I will order CRP and serum magnesium levels. She reports thyroid functions been recently checked and is been normal. Holter monitor testing was also normal. We'll also give her 0.5 mg of Dilaudid with Reglan 5 mg IV for relief of abdominal pain. - Re-Assessments/Exams Free Text/Narrative Re-Assessment/Exam: 08/21/18 20:47 I have reviewed her CT of the abdomen and pelvis is done with oral and IV contrast earlier today. She has a cyst in each lobe of the liver. There are multiple parapelvic cysts in both kidneys. No stones identified. No calcified gallstones identified. Pancreas appears normal. Minimal hiatal hernia appreciated. The colon is stool-filled from cecum to the rectal vault. There is extensive diverticula involving the sigmoid and rectal colons. There is inflammatory changes around the rectum and lower sigmoid colon. No abscess formation is identified. Quite intensively there is a left lower lung mass seen appears stable from previous exam in size and configuration and measures about 1.6 cm. were finally able to view most her labs that were done at [facility] today. White count was 9.0 differential was not available. Hemoglobin is normal. Chemistry was normal as well. CRP was not done. Urinalysis was normal as well. 08/21/18 21:24 Labs are back revealing a total white count of 9.10. Differential 71% neutrophils and no band cells. Hemoglobin is 14.1 with hematocrit of 43.0. Platelet count is 220,000. Sodium 142 with potassium slightly low at 3.4. Chloride 104 bicarbonate 28. And a gap is 13.4. BUN is 10 with creatinine of 0.8. GFR remains greater than 60. Glucose is 117. Calcium is 9.4. He needs them is 2.1. Liver function normal C-reactive protein is elevated at 5.2. Total protein 7.3 with albumin fraction of 3.5. 08/21/18 21:55 Patient is still feeling quite dizzy and lightheaded and slightly nauseated after receiving Dilaudid 0.5 mg IV and Reglan 5 mg. Is to be very sensitive to narcotics. Patient is showing fairly frequent trigeminy quadrigeminy pattern of unifocal PVCs on the monitor. She is aware of these as well. I advise adopt a wait and see pattern. If they are persisting past 3 days then she can start metoprolol tartrate 25 mg once daily every morning to see if this brings him under control. Reassured by themselves they do not represent any serious underlying pathology. Secondly should be given magnesium citrate or 8 ounces of Citroma by mouth with 6 ounces of juice of choice to provide bowel cleanse. The entire colon is full of stool and CT notably is contributing to good deal to her current pain. Is important to get the oral contrast out of her system otherwise it will make the constipation worse. Antibiotic change was discontinue Flagyl since she seems to feel that was making her sick. Replace with clindamycin 300 mg 3 times a day for one week. She will continue the Cipro 500 mg twice a day. Follow-up with Dr. Robsion if any further problems occur. 08/21/18 22:14 patient's bowel started to move while she was in the ED before discharge. She's gone twice. Therefore will see how many times she goes further and whether or not she needs to take the Citroma when she gets home. I would suggest waiting until tomorrow morning. Still feeling quite ill from the effect of narcotic Dilaudid 0.5 mg meaning she is extremely sensitive to narcotics. She only received Reglan 5 mg IV as well. Departure - Departure Time of Disposition: 21:39 Disposition: Home, Self-Care 01 Condition: Fair Clinical Impression: Intermittent palpitations, Diverticulitis of sigmoid colon, Constipation by delayed colonic transit, Premature ventricular contractions Prescriptions: Clindamycin HCl 300 mg PO TID #21 capsule Metoprolol Tartrate 25 mg PO DAILY #30 tablet Instructions: Diverticulitis, [id number], Premature Ventricular Contraction, Constipation, Adult Referrals: Chris Robison MD [Primary Care Provider] - Forms: ED Department Discharge Additional Instructions: Evaluation in the emergency room tonight in regards to recognized palpitations or irregular beats today. They seem to be worse after taking metronidazole tablet which is started today for diverticulitis. In the ED the monitor did show frequent premature ventricular contractions all coming from a single focus in your heart. I themselves they mean nothing. The mesentery since. But he has a few of these and up to thousand and these per day but we noticed them if they come more frequently or close together. They may be showing up more today because you're sick due to underlying diverticulitis. I would adopt a wait and see approach if they continue over the next 3 days then you can be started on a medication called atenolol 25 mg once daily and this usually would keep them from coming. He represented no serious underlying heart disease however. Chased of your medications for diverticulitis. Flagyl or metronidazole is to be discontinued. Replace it with clindamycin 300 mg 3 times daily for the next 7 days starting tomorrow morning. You did receive a dose of antibiotic intravenously while in the ED due to significant pain appreciated on palpation and examination of ear left lower quadrant of abdomen. This medication was called cefoxitin. Continue Cipro twice daily and clindamycin 3 times daily to clear up diverticulitiis. The CT scan of the abdomen done earlier today does show significant constipation with the entire colon being filled with stool. Certainly will be aggravating her current abdominal pain and holding up the contrast that you drink earlier today. Therefore my suggestion would be to take magnesium citrate 8 ounces by mouth with 6 ounces of juice of choice to provide bowel cleanse. Usually it starts to work in an hour to an the bowels usually move 3 or 4 times ending with mild diarrhea. I suspect this will give a good relief of your abdominal pain as well. After this I would suggest taking MiraLAX powder 17 g or 1 scoop daily to prevent constipation from occurring again. Constipation is a major factor in the cause of diverticulitis. - My Orders Last 24 Hours: My Active Orders 08/21/18 20:00 Dextrose 5%-Lactated Ringers 1,000 ml IV ASDIRECTED 08/21/18 20:09 EKG Documentation Completion [RC] STAT - Assessment/Plan Last 24 Hours: My Active Orders 08/21/18 20:00 Dextrose 5%-Lactated Ringers 1,000 ml IV ASDIRECTED 08/21/18 20:09 EKG Documentation Completion [RC] STAT
[2018-08-21] MEDS ORDERED: Metoclopramide 10 MG/2 ML SDV IVPUSH ONE (20:31)
[2018-08-21] MEDS ORDERED: HYDROmorphone 1 MG/ML Syringe IVPUSH ONE (20:31)
[2018-08-21] MEDS ORDERED: Magnesium Citrate Solution 296 ML Bottle PO ONE (21:09)
== END 2018-08-21 22:10 | disposition home or self-care (01) ==
LOC: JD.ED 19:36
DX: I49.3 Ventricular premature depolarization (principal); K57.32 Diverticulitis of large intestine without perforation or abscess without bleeding; K59.01 Slow transit constipation; E03.9 Hypothyroidism, unspecified; F41.9 Anxiety disorder, unspecified; Z88.0 Allergy status to penicillin; Z88.2 Allergy status to sulfonamides; Z79.899 Other long term (current) drug therapy; Z98.890 Other specified postprocedural states
CPT/HCPCS: 36415; 80053; 83735; 85007; 85027; 86140; 93005; 96361; 96365; 96375; 99285; A9270; J0694; J1170; J2765; J7042; 93010

== ENCOUNTER 2018-09-14 15:27 | Emergency (ER) | payer BC, MEDICARE ==
[2018-09-14] MEDS ORDERED: Sodium Chloride 0.9% 1,000 ML IV SCH (16:00)
[2018-09-14 16:05] VITALS: BP 142/91
[2018-09-14] MEDS ORDERED: Acetaminophen 325 MG Tab PO ONE (16:37)
--- NOTE | 2018-09-14 16:55 | EDM.PDOC ---
ED HPI GENERAL MEDICAL PROBLEM - General Chief Complaint: Gastrointestinal Problem Stated Complaint: 102 FEVER/ LOWER BACK PAIN Time Seen by Provider: 09/14/18 15:47 Source of Information: Reports: Patient, RN Notes Reviewed - History of Present Illness INITIAL COMMENTS - FREE TEXT/NARRATIVE: 72 y/o female presents to ER with cc chills, fever and diarrhea that started yesterday. In addition, she has had lower back pain for the past 3 days. She was recently diagnosis with diverticulosis and was taking Clindamycin. She took this for 4.5 days and stopped 4 days ago because she was having diarrhea. She states her diarrhea resolved but came back again yesterday. She went to the clinic where they took her temperature and reported it was 102.0 and sent her here for further evaluation. She is accompanied by her . She is in no apparent distress. Onset Date: 09/13/18 Onset Time: 12:00 Duration: Getting Worse Location: Reports: Abdomen, Back Quality: Reports: Ache Severity: Mild Improves with: Reports: None Worsens with: Reports: None Associated Symptoms: Reports: Fever/Chills. Denies: Cough, Headaches, Nausea/ Vomiting, Shortness of Breath Left Lower Abdominal Pain Score (Numeric/FACES): 5 - Related Data Allergies Allergy/AdvReac Type Severity Reaction Status Date / Time Penicillins Allergy Hives Verified 09/14/18 15:45 sulfanilamide [Sulfanilamide] Allergy Hives Verified 09/14/18 15:45 Home Meds: Home Meds Levothyroxine 25 mcg PO DAILY 11/09/13 [History] Simvastatin 20 mg PO DAILY 11/09/13 [History] Cetirizine [ZyrTEC] 10 mg PO DAILY PRN 03/13/15 [History] ALPRAZolam [Xanax] 0.5 mg PO BEDTIME PRN 10/08/16 [History] Ranitidine [Zantac] 150 mg PO BID PRN 10/10/16 [History] Ciprofloxacin HCl [Cipro] 500 mg PO DAILY 08/21/18 [History] Clindamycin HCl 300 mg PO TID #21 capsule 08/21/18 [Rx] Metoprolol Tartrate 25 mg PO DAILY #30 tablet 08/21/18 [Rx] metroNIDAZOLE [Flagyl] 250 mg PO DAILY 08/21/18 [History] Ciprofloxacin [Cipro] 500 mg PO BID 3 Days #6 ml 09/14/18 [Rx] Vancomycin [First-Vancomycin 25 Compounding Kit] 125 mg PO QID 10 Days #40 bottle 09/14/18 [Rx] Past Medical History HEENT History: Reports: Allergic Rhinitis Cardiovascular History: Reports: High Cholesterol Gastrointestinal History: Reports: Diverticulosis, GERD 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 Psychiatric History: Reports: Anxiety Endocrine/Metabolic History: Reports: Hypothyroidism - Past Surgical History HEENT Surgical History: Reports: Tonsillectomy GI Surgical History: Reports: Colonoscopy Female Surgical History: Reports: D&C, Other (See Below) Social & Family History - Family History Respiratory: Reports: COPD, Interstitial Lung Disease Neurological: Reports: Cerebral Aneurysms, CVA Oncologic: Reports: Brain - Tobacco Use Smoking Status *Q: Never Smoker - Caffeine Use Caffeine Use: Reports: Coffee - Recreational Drug Use Recreational Drug Use: No - Living Situation & Occupation Living situation: Reports: , with Spouse 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 Denies: Decreased Appetite HEENT: Reports: No Symptoms Respiratory: Denies: Shortness of Breath Cardiovascular: Denies: Chest Pain Endocrine: Denies: Fatigue GI/Abdominal: Reports: Abdominal Pain, Diarrhea. Denies: Nausea, Vomiting : Reports: Dysuria Musculoskeletal: Reports: Back Pain (lower) Skin: Reports: No Symptoms Neurological: Reports: No Symptoms Psychiatric: Reports: No Symptoms Hematologic/Lymphatic: Reports: No Symptoms Immunologic: Reports: No Symptoms ED EXAM, GI/ABD - Physical Exam Exam: See Below Exam Limited By: No Limitations General Appearance: Alert, WD/WN, No Apparent Distress Respiratory/Chest: No Respiratory Distress, Lungs Clear, Normal Breath Sounds, No Accessory Muscle Use, Chest Non-Tender Cardiovascular: Normal Peripheral Pulses, Regular Rate, Rhythm, No Edema, No Gallop, No JVD, No Murmur, No Rub GI/Abdominal Exam: Normal Bowel Sounds, Soft, Non-Tender, No Organomegaly, No Distention, No Abnormal Bruit, No Mass, Pelvis Stable Back Exam: Normal Inspection, Full Range of Motion Extremities: Normal Inspection, Normal Range of Motion, Non-Tender, No Pedal Edema, Normal Capillary Refill Neurological: Alert, Oriented, CN II-XII Intact, Normal Cognition, Normal Gait, Normal Reflexes, No Motor/Sensory Deficits Psychiatric: Normal Affect, Normal Mood Skin Exam: Warm, Dry, Intact, Normal Color, No Rash Lymphatic: No Adenopathy Course - Vital Signs Last Recorded V/S: Last Vital Signs Temp 98.1 F 09/14/18 15:45 Pulse 113 H 09/14/18 15:45 Resp 16 09/14/18 15:45 BP 142/91 H 09/14/18 15:45 Pulse Ox 97 09/14/18 15:45 - Orders/Labs/Meds Orders: Active Orders 24 hr Category Date Time Status Blood Culture x2 Reflex Set [OM.PC] Stat Oth 09/14/18 15:55 Ordered Isolation [COMM] Stat Oth 09/14/18 17:13 Ordered Isolation [COMM] Stat Oth 09/14/18 17:17 Ordered Labs: Laboratory Tests 09/14/18 09/14/18 09/14/18 Range/Units 16:58 16:58 16:58 WBC 9.11 (3.98-10.04) K/mm3 RBC 4.87 (3.98-5.22) M/mm3 Hgb 14.1 (11.2-15.7) gm/L Hct 43.6 (34.1-44.9) % MCV 89.5 (79.4-94.8) fl MCH 29.0 (25.6-32.2) pg MCHC 32.3 (32.2-35.5) g/dl RDW Std Deviation 45.3 (36.4-46.3) fL Plt Count 168 L (182-369) K/mm3 MPV 10.7 (9.4-12.3) fl Neut % (Auto) 84.0 H (34.0-71.1) % Lymph % (Auto) 10.0 L (19.3-51.7) % [place] % (Auto) 5.6 (4.7-12.5) % Eos % (Auto) 0.1 L (0.7-5.8) Baso % (Auto) 0.1 (0.1-1.2) % Neut # (Auto) 7.65 H (1.56-6.13) K/mm3 Lymph # (Auto) 0.91 L (1.18-3.74) K/mm3 [place] # (Auto) 0.51 H (0.24-0.36) K/mm3 Eos # (Auto) 0.01 L (0.04-0.36) K/mm3 Baso # (Auto) 0.01 (0.01-0.08) K/mm3 Sodium 141 (136-145) mEq/L Potassium 3.7 (3.5-5.1) mEq/L Chloride 104 (98-107) mEq/L Carbon Dioxide 25 (21-32) mEq/L Anion Gap 15.7 H (5-15) BUN 7 (7-18) mg/dL Creatinine 0.7 (0.55-1.02) mg/dL Est Cr Clr Drug Dosing 59.15 mL/min Estimated GFR (MDRD) > 60 (>60) mL/min BUN/Creatinine Ratio 10.0 L (14-18) Glucose 98 (80-115) mg/dL Calcium 9.0 (8.5-10.1) mg/dL Magnesium 1.6 L (1.8-2.4) mg/dl Total Bilirubin 0.5 (0.2-1.0) mg/dL AST 18 (15-37) U/L ALT 31 (14-59) U/L Alkaline Phosphatase 74 (46-116) U/L Total Protein 6.8 (6.4-8.2) g/dl Albumin 3.8 (3.4-5.0) g/dl Globulin 3.0 gm/dL Albumin/Globulin Ratio 1.3 (1-2) Urine Color (Yellow) Urine Appearance (Clear) Urine pH (5.0-8.0) Ur Specific Linch (1.005-1.030) Urine Protein (Negative) Urine Glucose (UA) (Negative) Urine Ketones (Negative) Urine Occult Blood (Negative) Urine Nitrite (Negative) Urine Bilirubin (Negative) Urine Urobilinogen (0.2-1.0) Ur Leukocyte Esterase (Negative) Urine RBC (0-5) /hpf Urine WBC (0-5) /hpf Ur Epithelial Cells (0-5) /hpf Amorphous Sediment (NOT SEEN) /hpf Urine Bacteria (FEW) /hpf Urine Mucus (FEW) /hpf C.difficile [id number]-[id number] C. difficile Tox (PCR) 04/18/19 04/18/19 Range/Units 17:10 17:10 WBC (3.98-10.04) K/mm3 RBC (3.98-5.22) M/mm3 Hgb (11.2-15.7) gm/L Hct (34.1-44.9) % MCV (79.4-94.8) fl MCH (25.6-32.2) pg MCHC (32.2-35.5) g/dl RDW Std Deviation (36.4-46.3) fL Plt Count (182-369) K/mm3 MPV (9.4-12.3) fl Neut % (Auto) (34.0-71.1) % Lymph % (Auto) (19.3-51.7) % [place] % (Auto) (4.7-12.5) % Eos % (Auto) (0.7-5.8) Baso % (Auto) (0.1-1.2) % Neut # (Auto) (1.56-6.13) K/mm3 Lymph # (Auto) (1.18-3.74) K/mm3 [place] # (Auto) (0.24-0.36) K/mm3 Eos # (Auto) (0.04-0.36) K/mm3 Baso # (Auto) (0.01-0.08) K/mm3 Sodium (136-145) mEq/L Potassium (3.5-5.1) mEq/L Chloride (98-107) mEq/L Carbon Dioxide (21-32) mEq/L Anion Gap (5-15) BUN (7-18) mg/dL Creatinine (0.55-1.02) mg/dL Est Cr Clr Drug Dosing mL/min Estimated GFR (MDRD) (>60) mL/min BUN/Creatinine Ratio (14-18) Glucose (80-115) mg/dL Calcium (8.5-10.1) mg/dL Magnesium (1.8-2.4) mg/dl Total Bilirubin (0.2-1.0) mg/dL AST (15-37) U/L ALT (14-59) U/L Alkaline Phosphatase (46-116) U/L Total Protein (6.4-8.2) g/dl Albumin (3.4-5.0) g/dl Globulin gm/dL Albumin/Globulin Ratio (1-2) Urine Color Yellow (Yellow) Urine Appearance Clear (Clear) Urine pH 6.0 (5.0-8.0) Ur Specific Linch 1.015 (1.005-1.030) Urine Protein Negative (Negative) Urine Glucose (UA) Negative (Negative) Urine Ketones 2+ H (Negative) Urine Occult Blood 1+ H (Negative) Urine Nitrite Negative (Negative) Urine Bilirubin Negative (Negative) Urine Urobilinogen 0.2 (0.2-1.0) Ur Leukocyte Esterase Trace H (Negative) Urine RBC 5-10 H (0-5) /hpf Urine WBC 10-20 H (0-5) /hpf Ur Epithelial Cells 0-5 (0-5) /hpf Amorphous Sediment Few H (NOT SEEN) /hpf Urine Bacteria Few H (FEW) /hpf Urine Mucus Not seen (FEW) /hpf C.difficile [id number]-NAP1-B1 Presumptive negative C. difficile Tox (PCR) Positive H Meds: Medications Discontinued Medications Generic Name Dose Route Start Last Admin Trade Name Zia PRN Reason Stop Dose Admin Acetaminophen 650 mg 09/14/18 16:37 09/14/18 16:48 Tylenol PO 09/14/18 16:38 650 mg NOW ONE Administration Sodium Chloride 1,000 mls @ 250 mls/hr 09/14/18 16:00 09/14/18 16:30 Normal Saline IV 250 mls/hr ASDIRECTED DHRUV Administration Levofloxacin/Dextrose 500 mg/ 100 mls @ 100 mls/hr 09/14/18 18:19 09/14/18 18 :56 Premix IV 09/14/18 19:18 Not Given ONETIME ONE Ceftriaxone Sodium 2 gm/ 100 mls @ 200 mls/hr 09/14/18 18:46 09/14/18 18:55 Sodium Chloride IV 09/14/18 19:15 200 mls/hr ONETIME ONE Administration Magnesium Oxide 400 mg 09/14/18 17:51 09/14/18 18:56 Magnesium Oxide PO 09/14/18 17:52 400 mg ONETIME ONE Administration - Re-Assessments/Exams Free Text/Narrative Re-Assessment/Exam: 09/14/18 19:17 72 y/o female presented to ER with cc chills, fever and diarrhea that started yesterday. In addition she has been experiencing lower back pain. Her4 WBC 9.77 RBC 48.7 H&H 13.6/39.8, plt 168, Na+ `141 K+ 3.7 chloride 104 co2 25 bun 7 creatine 0.7 magnesium 1.6 + c-difficile. Her urinalysis is consistent with UTI + 2 ketones, + 1 occult blood, WBC 10-20, influenza negative. She received Rocephin, IVF and Tylenol and her condition improved. I will discharge with Vancomycin and Cipro for outpatient antibiotic therapy. I instructed her on good hand washing and how C-Diff is very contagious. I recommend she follow up with PCP for repeat stool sample if she continues to have diarrhea after completing her antibiotics. Instructed to return to the ER for any new or acute worsening symptoms. She verbalized understanding and is comfortable with plan for discharge. She is stable at time of discharge. 09/14/18 20:48 Departure - Departure Time of Disposition: 19:23 Disposition: Home, Self-Care 01 Condition: Good Clinical Impression: Diarrhea, C. difficile diarrhea, UTI (urinary tract infection) - Discharge Information Prescriptions: Ciprofloxacin [Cipro] 500 mg PO BID 3 Days #6 ml Vancomycin [First-Vancomycin 25 Compounding Kit] 125 mg PO QID 10 Days #40 bottle Instructions: Clostridium Difficile Infection, [id number] Referrals: Chris Robison MD [Primary Care Provider] - Forms: ED Department Discharge Additional Instructions: You have been diagnosis with a urinary tract infection and C-difficile. C- difficile is a infection in your colon. You need to use good hand washing as we discussed. You have been prescribed Cipro and Vancomycin for outpatient antibiotic therapy. Please take this as prescribed. If you continue to have diarrhea after finishing all your antibiotic you should then go to your PCP for re-evaluation of your stool. Return to the ER for any new or acute worsening symptoms. - My Orders Last 24 Hours: My Active Orders 09/14/18 15:55 Blood Culture x2 Reflex Set [OM.PC] Stat 09/14/18 17:13 Isolation [COMM] Stat 09/14/18 17:17 Isolation [COMM] Stat - Assessment/Plan Last 24 Hours: My Active Orders 09/14/18 15:55 Blood Culture x2 Reflex Set [OM.PC] Stat 09/14/18 17:13 Isolation [COMM] Stat 09/14/18 17:17 Isolation [COMM] Stat
[2018-09-14] MEDS ORDERED: Magnesium Oxide 400 MG Tab PO ONE (17:51)
[2018-09-14] MEDS ORDERED: Levofloxacin/Dextrose 5%-Water 500 MG in Premix Bag 1 BAG IV ONE (18:19)
[2018-09-14] MEDS ORDERED: cefTRIAXone 2 GM Vial IV SCH (18:45)
[2018-09-14] MEDS ORDERED: cefTRIAXone 2 GM in Sodium Chloride 0.9% 100 ML IV ONE (18:46)
== END 2018-09-14 19:40 | disposition home or self-care (01) ==
LOC: JD.ED 15:27
DX: A04.72 Enterocolitis due to Clostridium difficile, not specified as recurrent (principal); N39.0 Urinary tract infection, site not specified; E78.00 Pure hypercholesterolemia, unspecified; E03.9 Hypothyroidism, unspecified; Z88.0 Allergy status to penicillin; Z88.2 Allergy status to sulfonamides; Z79.899 Other long term (current) drug therapy
CPT/HCPCS: 36415; 80053; 81001; 83735; 85025; 87493; 87804; 96361; 96365; 99283; A9270; J0696; J7030; J7040

== ENCOUNTER 2018-10-10 06:51 | Emergency (ER) | payer BC, MEDICARE ==
[2018-10-10 07:11] VITALS: BP 152/100
--- NOTE | 2018-10-10 07:20 | EDM.PDOC ---
ED HPI GENERAL MEDICAL PROBLEM - General Chief Complaint: Allergic Reaction Stated Complaint: POSS ALLERGIC REACTION TO MEDS Time Seen by Provider: 10/10/18 07:05 Source of Information: Reports: Patient History Limitations: Reports: No Limitations - History of Present Illness INITIAL COMMENTS - FREE TEXT/NARRATIVE: 73-year-old female presents to the ED with a development of a rash particularly involving both ears anterior lateral neck with marked erythema and swelling of the MCP joints of both hands although left hand is somewhat better at this time. Also marked swelling of the lateral aspect of both feet which are throbbing making it difficult to walk. Note the patient was started on vancomycin 125 mg 4 times daily for recurrence of Clostridium difficile enteritis on Tuesday, October 08. It appears that she is allergic to this medication. It had been used in the past for C. difficile enteritis infection. Diarrhea is improved down to 3 or 4 times daily depending on what she eats. Major pain is in her feet making it very difficult to walk. Onset: Sudden Onset Date: 10/09/18 Onset Time: 18:00 Duration: Hour(s): Location: Reports: Face (Both ears), Neck, Upper Extremity, Right, Lower Extremity, Left, Lower Extremity, Right (Particularly across the MCP joints of both hands but right worse than the left with swelling and inflammation and erythema across the MCP joints. Lateral foot) Quality: Reports: Ache (Left lateral foot swelling and pain.), Throbbing Severity: Moderate Improves with: Reports: None Worsens with: Reports: Other, Movement Context: Reports: Other (Drug eruption with swelling of the soft tissues and skin from vancomycin). Denies: Activity, Exercise, Lifting, Sick Contact, Trauma Associated Symptoms: Reports: Rash. Denies: Confusion, Chest Pain, Cough, cough w sputum, Diaphoresis, Fever/Chills, Headaches, Loss of Appetite, Malaise , Nausea/Vomiting, Seizure, Shortness of Breath, Syncope, Weakness Treatments HOSPICE HOME HEALTH AIDE: Reports: Other (see below) (None.) - Related Data Allergies Allergy/AdvReac Type Severity Reaction Status Date / Time Penicillins Allergy Hives Verified 10/10/18 07:00 Sulfa (Sulfonamide Allergy Rash Verified 10/10/18 07:00 Antibiotics) vancomycin Allergy Redness Verified 10/10/18 07:28 Home Meds: Home Meds Levothyroxine 25 mcg PO DAILY 11/09/13 [History] ALPRAZolam [Xanax] 0.25 mg PO BEDTIME PRN 10/08/16 [History] Vancomycin [First-Vancomycin 25 Compounding Kit] 125 mg PO QID 10 Days #40 bottle 09/14/18 [Rx] Hyoscyamine [Hyomax-SL] 0.125 mg PO Q6H PRN 10/10/18 [History] Omeprazole 20 mg PO DAILY 10/10/18 [History] Rosuvastatin Calcium 0 mg PO DAILY 10/10/18 [History] metroNIDAZOLE [Flagyl] 500 mg PO Q8H #24 tab 10/10/18 [Rx] predniSONE [Deltasone] 20 mg PO BID #6 tablet 10/10/18 [Rx] Past Medical History HEENT History: Reports: Allergic Rhinitis Cardiovascular History: Reports: High Cholesterol Gastrointestinal History: Reports: Diverticulosis, GERD 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 Psychiatric History: Reports: Anxiety Endocrine/Metabolic History: Reports: Hypothyroidism - Past Surgical History HEENT Surgical History: Reports: Tonsillectomy GI Surgical History: Reports: Colonoscopy Female Surgical History: Reports: D&C, Other (See Below) Social & Family History - Family History Respiratory: Reports: COPD, Interstitial Lung Disease Neurological: Reports: Cerebral Aneurysms, CVA Oncologic: Reports: Brain - Caffeine Use Caffeine Use: Reports: Coffee - Living Situation & Occupation Living situation: Reports: , with Spouse 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 Denies: Fever, Chills, Malaise, Weakness, Fatigue, Weight Loss HEENT: Reports: Other (Both ears are erythematous and burning.) Respiratory: Reports: No Symptoms Cardiovascular: Reports: No Symptoms Endocrine: Reports: No Symptoms GI/Abdominal: Reports: No Symptoms : Reports: No Symptoms Musculoskeletal: Reports: Other (Swelling of the MCP joints of both hands and lateral aspects of both feet with erythema.) Skin: Reports: Rash (Erythema nape of neck and left anterior lateral neck in both ears. Both hands of the MCP joints and lateral aspects of both feet.) Psychiatric: Reports: No Symptoms Hematologic/Lymphatic: Reports: No Symptoms Immunologic: Reports: No Symptoms ED EXAM GENERAL NO PERIP PULSE - Physical Exam Exam: See Below Exam Limited By: No Limitations General Appearance: Alert, WD/WN, Mild Distress Eye Exam: Bilateral Eye: Normal Inspection Ears: Other (Both ears are erythematous with slight swelling.) Throat/Mouth: Normal Inspection, Normal Lips, Normal Teeth, Normal Oropharynx Head: Atraumatic, Normocephalic. No: Facial Swelling Neck: Other (Rash around the anterior lateral aspect of both sides of her neck.) Respiratory/Chest: No Respiratory Distress, Lungs Clear, Normal Breath Sounds, No Accessory Muscle Use, Chest Non-Tender Cardiovascular: Normal Peripheral Pulses, Regular Rate, Rhythm, No Edema, No Murmur, No Rub GI/Abdominal: Normal Bowel Sounds, Soft, Non-Tender, No Organomegaly, No Abnormal Bruit, No Mass, Pelvis Stable Back Exam: Normal Inspection, Full Range of Motion Extremities: Other (There is swelling particular across the MCP joints of her right hand she states it was in the left hand but is somewhat dissipated at the time my exam. Swelling lateral aspect of) Neurological: Alert ( both feet involving the lateral dorsal aspect as was the plantar aspect of the feet. Associated mild erythema), Oriented, CN II-XII Intact, Normal Cognition Psychiatric: Normal Affect, Normal Mood Skin Exam: Warm, Dry, Intact, Rash (Erythematous rash anterior lateral aspect of both feet dorsal aspects of both hands over the MCP joints of both ureters and lateral aspect of her neck.) Course - Vital Signs Last Recorded V/S: Last Vital Signs Temp 36.7 C 10/10/18 06:55 Pulse 108 H 10/10/18 06:55 Resp 18 10/10/18 06:55 BP 152/100 H 10/10/18 06:55 Pulse Ox 94 L 10/10/18 06:55 - Radiology Interpretation Free Text/Narrative:: 73-year-old female presents to the ED with acute allergic reaction to vancomycin. She started to develop areas of erythema particularly anterolateral aspects of both sides of her neck both ears are hot and burning swelling across the MCP joints of both hands right side worse than left at present. Swelling of the lateral anterior dorsal and plantar surfaces of both feet making it difficult to walk. Patient was treated with vancomycin within the last 6 months for C. difficile enteritis. Plan discontinue vancomycin. She's allergic to this medication forever. Placed on Flagyl 500 mg 3 times a day for the next 8 days. Deltasone 20 mg in the morning and supper for the next 3 days to bring the allergic reaction under control. Benadryl 50 mg every 6 hours when necessary. Follow-up with personal physician if any further problems occur Departure - Departure Time of Disposition: 07:16 Disposition: Home, Self-Care 01 Condition: Fair Clinical Impression: Drug allergy, antibiotic, Dermatitis - Discharge Information *PRESCRIPTION DRUG MONITORING PROGRAM REVIEWED*: Not Applicable *COPY OF PRESCRIPTION DRUG MONITORING REPORT IN PATIENT GRIS: Not Applicable Prescriptions: metroNIDAZOLE [Flagyl] 500 mg PO Q8H #24 tab predniSONE [Deltasone] 20 mg PO BID #6 tablet Instructions: Drug Allergy, [id number], Hand Dermatitis, [id number] Referrals: Chris Robison MD [Primary Care Provider] - Forms: ED Department Discharge Additional Instructions: Evaluation the emergency room this morning in regards to drug eruption with rash primarily to the nape and anterior aspect of the neck both ears and swelling particularly of the right hand across the MCP joints and lateral aspect of both feet. Symptoms came on since starting vancomycin 125 mg 4 times daily on Tuesday, October 08. This medication is being used to try and bring Clostridium difficile infection under control. It is obvious that you are now allergic to vancomycin for ever. This medication is to be discontinued. Replace with Flagyl 500 mg 3 times daily for the next 8 days to clear up Clostridium difficile enteritis. Treat rash with Deltasone 20 mg twice daily breakfast and supper for the next 3 days to bring the swelling and inflammation under control. He also use Benadryl 50 mg every 6 hours if needed for itching and/or swelling. Expect marked improvement over the next 36 hours. Follow-up with personal care physician if any further problems occur.
== END 2018-10-10 07:40 | disposition home or self-care (01) ==
LOC: JD.ED 06:51
DX: L27.1 Localized skin eruption due to drugs and medicaments taken internally (principal); T36.8X5A Adverse effect of other systemic antibiotics, initial encounter; A04.72 Enterocolitis due to Clostridium difficile, not specified as recurrent; E78.00 Pure hypercholesterolemia, unspecified; E03.9 Hypothyroidism, unspecified; Z88.0 Allergy status to penicillin; Z88.2 Allergy status to sulfonamides; Z79.899 Other long term (current) drug therapy
CPT/HCPCS: 99283

== ENCOUNTER 2018-10-26 15:43 | Emergency (ER) | payer BC, MEDICARE ==
[2018-10-26 15:53] VITALS: BP 135/75
--- NOTE | 2018-10-26 16:41 | EDM.PDOC ---
ED HPI GENERAL MEDICAL PROBLEM - General Chief Complaint: Gastrointestinal Problem Stated Complaint: 104 FEVER AND RECTAL PAIN Time Seen by Provider: 10/26/18 16:05 Source of Information: Reports: Patient, Old Records History Limitations: Reports: No Limitations - History of Present Illness INITIAL COMMENTS - FREE TEXT/NARRATIVE: 73-year-old female presents for evaluation amd treatment of a fever. Patient reports she checked her temperature at home and it was 104. She reports she's been having significant low back pain and passing "large globs of mucus ". She denies any vomiting or cough. She is she's been having some abdominal cramps and a dry mouth. She did have loose stools 3 today. A small amount of blood in her stool as well as a large amount of mucus. Patient reports that was recently treated for C. difficile. Review records show she was seen September 14 for C. difficile and a UTI. Prescribed Cipro and vanco. She was seen on October 10 as she had a reaction to the vanco and was switched to Flagyl and added on to prednisone. Upon arrival to the ED patient's temperature is 99.4. She is not taking any Tylenol or Motrin for the fever. Her primary care providers Dr. Robison she has an appointment with him tomorrow. She's now states that she feels silly for coming here and she does not want any workup. She was concerned about the fever. She states that she did not feel feverish. She is declining a workup at this time. Lower Back Pain Score (Numeric/FACES): 7 - Related Data Allergies Allergy/AdvReac Type Severity Reaction Status Date / Time Penicillins Allergy Hives Verified 10/26/18 15:58 Sulfa (Sulfonamide Allergy Rash Verified 10/26/18 15:58 Antibiotics) vancomycin Allergy Redness Verified 10/26/18 15:58 Home Meds: Home Meds Levothyroxine 25 mcg PO DAILY 11/09/13 [History] ALPRAZolam [Xanax] 0.25 mg PO BEDTIME PRN 10/08/16 [History] Vancomycin [First-Vancomycin 25 Compounding Kit] 125 mg PO QID 10 Days #40 bottle 09/14/18 [Rx] Hyoscyamine [Hyomax-SL] 0.125 mg PO Q6H PRN 10/10/18 [History] Omeprazole 20 mg PO DAILY 10/10/18 [History] Rosuvastatin Calcium 0 mg PO DAILY 10/10/18 [History] metroNIDAZOLE [Flagyl] 500 mg PO Q8H #24 tab 10/10/18 [Rx] predniSONE [Deltasone] 20 mg PO BID #6 tablet 10/10/18 [Rx] Past Medical History HEENT History: Reports: Allergic Rhinitis Cardiovascular History: Reports: High Cholesterol Gastrointestinal History: Reports: Diverticulosis, GERD, Other (See Below) Other Gastrointestinal History: c. diff. Genitourinary History: Reports: UTI, Recurrent [employer] History: Reports: Ectopic Psychiatric History: Reports: Anxiety Endocrine/Metabolic History: Reports: Hypothyroidism - Infectious Disease History Infectious Disease History: Reports: C-Difficile, Chicken Pox, Measles, Mumps - Past Surgical History HEENT Surgical History: Reports: Tonsillectomy GI Surgical History: Reports: Colonoscopy Female Surgical History: Reports: D&C, Other (See Below) Social & Family History - Family History Respiratory: Reports: COPD, Interstitial Lung Disease Neurological: Reports: Cerebral Aneurysms, CVA Oncologic: Reports: Brain - Tobacco Use Smoking Status *Q: Never Smoker Second Hand Smoke Exposure: No - Caffeine Use Caffeine Use: Reports: Coffee - Recreational Drug Use Recreational Drug Use: No - Living Situation & Occupation Living situation: Reports: , with Spouse 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 Denies: Abdominal Pain, Nausea, Vomiting Musculoskeletal: Reports: Back Pain ED EXAM, GI/ABD - Physical Exam Exam: See Below Exam Limited By: No Limitations General Appearance: Alert, WD/WN, No Apparent Distress Course - Vital Signs Last Recorded V/S: Last Vital Signs Temp 99.4 F 10/26/18 15:48 Pulse 108 H 10/26/18 15:48 Resp 16 10/26/18 15:48 BP 135/75 10/26/18 15:48 Pulse Ox 95 10/26/18 15:48 - Re-Assessments/Exams Free Text/Narrative Re-Assessment/Exam: 10/26/18 16:20 Patient is declining an exam and work-up. She would like to go home and follow- up with her PCP tomorrow as planned. Departure - Departure Time of Disposition: 16:20 Disposition: Home, Self-Care 01 Condition: Good Clinical Impression: Elevated temperature - Discharge Information *PRESCRIPTION DRUG MONITORING PROGRAM REVIEWED*: No *COPY OF PRESCRIPTION DRUG MONITORING REPORT IN PATIENT GRIS: No Referrals: Chris Robison MD [Primary Care Provider] - Forms: ED Department Discharge Additional Instructions: Follow-up with Dr. Robison tomorrow as planned. Continue on probiotic. Please return to the ER should your symptoms change or worsen.
== END 2018-10-26 16:48 | disposition home or self-care (01) ==
LOC: JD.ED 15:43
DX: R50.9 Fever, unspecified (principal); E03.9 Hypothyroidism, unspecified; E78.00 Pure hypercholesterolemia, unspecified; K21.9 Gastro-esophageal reflux disease without esophagitis; Z79.899 Other long term (current) drug therapy; Z88.2 Allergy status to sulfonamides; Z88.1 Allergy status to other antibiotic agents; Z88.0 Allergy status to penicillin
CPT/HCPCS: 99283

== ENCOUNTER 2022-03-25 10:52 | Emergency (ER) | payer MEDICARE, BC ==
[2022-03-25] MEDS ORDERED: Sodium Chloride 0.9% 10 ML Syringe FLUSH PRN (12:11)
[2022-03-25 12:42] LABS: ESTIMATED GFR 91 mL/min (>60)
[2022-03-25] MEDS ORDERED: Sodium Chloride 0.9% 10 ML Syringe FLUSH ONE (13:59)
[2022-03-25] MEDS ORDERED: Iopamidol 612 MG/ML 100 ML Bottle IVPUSH ONE (13:59)
[2022-03-25] MEDS ORDERED: Sodium Chloride 0.9% 1,000 ML IV ONE (15:03)
[2022-03-25] MEDS ORDERED: Acetaminophen/HYDROcodone 325-5 MG Tab PO ONE (15:14)
[2022-03-25] MEDS ORDERED: Dicyclomine 10 MG Cap PO ONE (17:22)
[2022-03-25] MEDS ORDERED: Sodium Chloride 0.9% 1,000 ML IV SCH (18:30)
[2022-03-25] MEDS ORDERED: HYDROmorphone 0.5 MG/0.5 ML Syringe IVPUSH ONE ×2 (19:16→20:15)
[2022-03-25] MEDS ORDERED: Ondansetron 4 MG/2 ML SDV IVPUSH ONE (19:25)
[2022-03-25 20:27] VITALS: BP 131/81; PULSE 78
== END 2022-03-25 20:26 | disposition critical access hospital (66) ==
LOC: JD.ED 10:52
DX: K85.90 Acute pancreatitis without necrosis or infection, unspecified (principal); E78.00 Pure hypercholesterolemia, unspecified; Z88.0 Allergy status to penicillin; Z88.2 Allergy status to sulfonamides; Z88.1 Allergy status to other antibiotic agents; Z79.899 Other long term (current) drug therapy
CPT/HCPCS: 36415; 71045; 74177; 76705; 80053; 81001; 83690; 83735; 84484; 85025; 86140; 87086; 93005; 96361; 96374; 96375; 96376; 99285; A9270; J1170; J2405; J3490; J7030; Q9967

== ENCOUNTER 2022-03-27 19:11 | Emergency (ER) | payer MEDICARE, BC ==
[2022-03-27] MEDS ORDERED: Ondansetron 4 MG/2 ML SDV IVPUSH STA (20:08)
[2022-03-27] MEDS ORDERED: Sodium Chloride 0.9% 10 ML Syringe FLUSH PRN (20:56)
[2022-03-27] MEDS ORDERED: HYDROmorphone 0.5 MG/0.5 ML Syringe IVPUSH ONE (21:02)
[2022-03-27] MEDS ORDERED: Sodium Chloride 0.9% 1,000 ML IV STA (21:02)
[2022-03-27] MEDS ORDERED: Iopamidol 612 MG/ML 100 ML Bottle IVPUSH ONE (22:43)
[2022-03-27] MEDS ORDERED: Cefdinir 300 MG Cap PO ONE (23:09)
[2022-03-27 23:55] VITALS: BP 121/84; PULSE 72
== END 2022-03-27 23:36 | disposition home or self-care (01) ==
LOC: JD.ED 19:11
DX: N39.0 Urinary tract infection, site not specified (principal); E78.00 Pure hypercholesterolemia, unspecified; Z88.0 Allergy status to penicillin; Z88.1 Allergy status to other antibiotic agents; Z88.2 Allergy status to sulfonamides; Z79.899 Other long term (current) drug therapy
CPT/HCPCS: 36415; 74019; 74177; 80053; 81001; 83690; 85025; 86140; 87086; 96361; 96374; 96375; 99284; A9270; J1170; J2405; J3490; J7030; Q9967

== ENCOUNTER 2022-04-06 00:54 | Observation (INO) | payer MEDICARE, BC ==
[2022-04-06] MEDS ORDERED: Sodium Chloride 0.9% 10 ML Syringe FLUSH PRN (01:06)
[2022-04-06] MEDS ORDERED: Sodium Chloride 0.9% 1,000 ML ONE (02:05)
[2022-04-06] MEDS: Sodium Chloride 0.9% 1,000 ML IV SCH ×2 (02:08→17:27)
[2022-04-06] MEDS ORDERED: Ondansetron 4 MG/2 ML SDV IVPUSH ONE (03:14)
[2022-04-06] MEDS ORDERED: HYDROmorphone 0.5 MG/0.5 ML Syringe IVPUSH ONE (03:14)
[2022-04-06] MEDS: Ondansetron 4 MG/2 ML SDV IVPUSH PRN ×3 (06:20→18:08)
[2022-04-06] MEDS ORDERED: Gadobenate Dimeglumine 529 MG/ML 15 ML SDV IVPUSH ONE (08:26)
[2022-04-06] MEDS ORDERED: Sodium Chloride 0.9% 10 ML Syringe FLUSH SCH (08:30)
[2022-04-06] MEDS: cefTRIAXone 2 GM in Sodium Chloride 0.9% 100 ML IV SCH (10:33)
[2022-04-06] MEDS: Enoxaparin 40 MG/0.4 ML Syringe SUBCUT SCH (10:33)
[2022-04-06] MEDS ORDERED: FLU Vacc QS2022(65UP)/MF59C/PF 60 MCG/0.5 ML Syringe IM ONE (12:00)
[2022-04-06] MEDS ORDERED: ALPRAZOLAM 0.5 MG PO PRN (14:13)
[2022-04-06] MEDS: HYDROmorphone 0.5 MG/0.5 ML Syringe IVPUSH PRN ×3 (14:15→20:33)
[2022-04-06] MEDS: AMLODIPINE 2.5 MG PO SCH (15:48)
[2022-04-06] MEDS: ROSUVASTATIN CALCIUM 20 MG PO SCH (15:49)
[2022-04-06] MEDS: Omeprazole 20 MG Cap.CR ** PATIENT'S OWN MED PO SCH (15:50)
[2022-04-07] MEDS: Ondansetron 4 MG/2 ML SDV IVPUSH PRN (00:54)
[2022-04-07] MEDS: Sodium Chloride 0.9% 1,000 ML IV SCH (00:54)
[2022-04-07 05:59] VITALS: PULSE 79
[2022-04-07] MEDS ORDERED: Levothyroxine 50 MCG Tab ** PATIENT'S OWN MED PO SCH (06:00)
[2022-04-07] MEDS: Omeprazole 20 MG Cap.CR ** PATIENT'S OWN MED PO SCH (07:36)
[2022-04-07] MEDS: cefTRIAXone 2 GM in Sodium Chloride 0.9% 100 ML IV SCH (07:36)
[2022-04-07 08:17] VITALS: BP 115/92
[2022-04-07] MEDS: AMLODIPINE 2.5 MG PO SCH (08:27)
[2022-04-07] MEDS: ROSUVASTATIN CALCIUM 20 MG PO SCH (08:28)
[2022-04-07] MEDS: Enoxaparin 40 MG/0.4 ML Syringe SUBCUT SCH (08:32)
== END 2022-04-07 13:20 | disposition home or self-care (01) ==
LOC: JD.ED 00:54 → JD.ICU 05:30 → JD.MS 10:10
PROVIDERS: ADMIT Internal Medicine; ATTEND Internal Medicine
DX: K85.90 Acute pancreatitis without necrosis or infection, unspecified (principal); N39.0 Urinary tract infection, site not specified; R10.9 Unspecified abdominal pain; E78.00 Pure hypercholesterolemia, unspecified; K21.9 Gastro-esophageal reflux disease without esophagitis; E03.9 Hypothyroidism, unspecified; F41.9 Anxiety disorder, unspecified; Z79.899 Other long term (current) drug therapy; Z79.890 Hormone replacement therapy; Z88.0 Allergy status to penicillin; Z88.2 Allergy status to sulfonamides; Z88.1 Allergy status to other antibiotic agents; Z86.16 Personal history of COVID-19; Z98.890 Other specified postprocedural states
CPT/HCPCS: 36415; 74183; 80053; 81001; 83690; 83735; 85025; 86140; A9270; A9577; J0696; J1170; J1650; J2405; J3490; J7030

== ENCOUNTER 2022-10-02 12:43 | Emergency (ER) | payer MEDICARE, BC ==
[2022-10-02 13:16] LABS: BASOPHILS ABSOLUTE AUTO 0.03 K/mm3 (0.01-0.08); BASOPHILS PERCENT AUTO 0.6 % (0.1-1.2); EOSINOPHILS ABSOLUTE AUTO 0.11 K/mm3 (0.04-0.36); EOSINOPHILS PERCENT AUTO 2.2 (0.7-5.8); HEMATOCRIT 44.3 % (34.1-44.9); HEMOGLOBIN 14.4 gm/dl (11.2-15.7); LYMPHOCYTES ABSOLUTE AUTO 2.58 K/mm3 (1.18-3.74); LYMPHOCYTES PERCENT AUTO 51.8 % (19.3-51.7); MEAN CORPUSCULAR HEMOGLOBIN 29.4 pg (25.6-32.2); MEAN CORPUSCULAR HGB CONC 32.5 g/dl (32.2-35.5); MEAN CORPUSCULAR VOLUME 90.6 fl (79.4-94.8); MEAN PLATELET VOLUME 10.1 fl (9.4-12.3); MONOCYTES ABSOLUTE AUTO 0.39 K/mm3 (0.24-0.36); MONOCYTES PERCENT AUTO 7.8 % (4.7-12.5); NEUTROPHILS ABSOLUTE AUTO 1.87 K/mm3 (1.56-6.13); NEUTROPHILS PERCENT AUTO 37.6 % (34.0-71.1); PLATELET COUNT,PLT 225 K/mm3 (182-369); RED BLOOD CELL COUNT 4.89 M/mm3 (3.98-5.22); WHITE BLOOD CELL COUNT,WBC 4.98 K/mm3 (3.98-10.04)
[2022-10-02 13:45] LABS: ALBUMIN 3.4 g/dl (3.4-5.0); ANION GAP 11.1 (5-15); BILIRUBIN TOTAL 0.3 mg/dL (0.2-1.0); BUN/CREATININE RATIO 17.1 (14-18); CALCIUM 8.8 mg/dL (8.5-10.1); CREATININE 0.7 mg/dL (0.55-1.02); EST CRCL DRUG DOSING (CG) 52.4 mL/min; MAGNESIUM 1.8 mg/dL (1.8-2.4); POTASSIUM,K 3.1 mEq/L (3.5-5.1); PROTEIN TOTAL,TP 6.8 g/dl (6.4-8.2); TSH 2.779 uIU/mL (0.358-3.74)
[2022-10-02 15:43] VITALS: BP 120/82; PULSE 79
== END 2022-10-02 15:20 | disposition home or self-care (01) ==
LOC: JD.ED 12:43
DX: R00.2 Palpitations (principal); E78.00 Pure hypercholesterolemia, unspecified; E03.9 Hypothyroidism, unspecified; Z79.899 Other long term (current) drug therapy; Z88.0 Allergy status to penicillin; Z88.2 Allergy status to sulfonamides; Z88.1 Allergy status to other antibiotic agents; Z86.16 Personal history of COVID-19
CPT/HCPCS: 36415; 80053; 83735; 84443; 84484; 85025; 85379; 93005; 93010; 99283; 99285

== ENCOUNTER 2023-05-03 02:21 | Emergency (ER) | payer MEDICARE, BC ==
[2023-05-03] MEDS ORDERED: Proparacaine 0.5% Ophth Soln 15 ML Bottle EYELF STA (03:08)
[2023-05-03] MEDS ORDERED: Fluorescein 1 MG Ophth Strip EYELF ONE (03:19)
[2023-05-03] MEDS ORDERED: Ciprofloxacin 0.3% Ophth Soln 5 ML Bottle EYELF SCH (04:00)
[2023-05-03 04:23] VITALS: BP 140/80; PULSE 76
== END 2023-05-03 04:12 | disposition home or self-care (01) ==
LOC: JD.ED 02:21
DX: H10.32 Unspecified acute conjunctivitis, left eye (principal); E78.00 Pure hypercholesterolemia, unspecified; E03.9 Hypothyroidism, unspecified; Z86.16 Personal history of COVID-19; Z88.2 Allergy status to sulfonamides; Z88.0 Allergy status to penicillin; Z88.1 Allergy status to other antibiotic agents; Z79.899 Other long term (current) drug therapy
CPT/HCPCS: 99282; A9270; 99283; J3490

== ENCOUNTER 2023-10-01 21:40 | Inpatient (IN) | payer MEDICARE ==
[2023-10-01] MEDS: Alum Hydrox/Mag Hydrox/Simeth 30 ML, Lidocaine 2% 15 ML PO ONE (22:13)
[2023-10-01] MEDS: Lidocaine 2% Viscous Solution 15 ML UD ONE (22:15)
[2023-10-01 22:17] LABS: APPEARANCE,URINE CLEAR (Clear); BILIRUBIN,URINE NEGATIVE (Negative); COLOR,URINE YELLOW (Yellow); GLUCOSE,URINE NEGATIVE (Negative); KETONES,URINE NEGATIVE (Negative); LEUKOCYTE ESTERASE,URINE 1+ (Negative); NITRITE,URINE NEGATIVE (Negative); OCCULT BLOOD,URINE TRACE-LYSED (Negative); PH,URINE 6.5 (5.0-8.0); PROTEIN,URINE NEGATIVE (Negative); UROBILINOGEN,URINE 0.2 (0.2-1.0)
[2023-10-01 22:23] LABS: BASOPHILS PERCENT AUTO 0.4 % (0.0-1.0); EOSINOPHILS ABSOLUTE AUTO 0.1 K/mm3 (0.0-0.4); EOSINOPHILS PERCENT AUTO 1.5 % (0.0-6.0); HEMATOCRIT 46.2 % (37.0-47.0); HEMOGLOBIN 15.1 gm/dl (12.0-16.0); IMMATURE GRAN ABSOLUTE AUTO 0.04 K/mm3 (0.00-0.05); IMMATURE GRAN PERCENT AUTO 0.5 % (0.0-0.4); LYMPHOCYTES ABSOLUTE AUTO 3.2 K/mm3 (1.0-4.8); LYMPHOCYTES PERCENT AUTO 37.4 % (24.0-44.0); MEAN CORPUSCULAR HEMOGLOBIN 29.8 pg (28.0-32.0); MEAN CORPUSCULAR HGB CONC 32.7 g/dl (32.0-36.0); MEAN CORPUSCULAR VOLUME 91.3 fl (83.0-99.0); MEAN PLATELET VOLUME 9.7 fl (9.4-12.3); MONOCYTES ABSOLUTE AUTO 0.4 K/mm3 (0.0-0.8); MONOCYTES PERCENT AUTO 4.7 % (0.0-8.0); NEUTROPHILS ABSOLUTE AUTO 4.7 K/mm3 (1.8-7.7); NEUTROPHILS PERCENT AUTO 55.5 % (41.0-71.0); PLATELET COUNT,PLT 241 K/mm3 (150-400); RED BLOOD CELL COUNT 5.06 M/mm3 (4.10-5.30); WHITE BLOOD CELL COUNT,WBC 8.53 K/mm3 (3.9-11.3)
[2023-10-01 22:25] LABS: BACTERIA,URINE FEW /hpf (FEW); MUCUS,URINE FEW /hpf (FEW); SQUAMOUS EPITHELIAL CELLS,UR 0-5 /hpf (0-5)
[2023-10-01 22:44] LABS: A/G RATIO 1.2 (1-2); ALBUMIN 3.9 g/dl (3.4-5.0); ANION GAP 14.7 (5-15); BILIRUBIN TOTAL 0.5 mg/dL (0.2-1.0); BUN/CREATININE RATIO 14.4 (14-18); C-REACTIVE PROTEIN 0.07 mg/dL (<0.30); CALCIUM 9.6 mg/dL (8.5-10.1); CREATININE 0.9 mg/dL (0.55-1.02); EST CRCL DRUG DOSING (CG) 40.13 mL/min; MAGNESIUM 1.9 mg/dL (1.8-2.4); POTASSIUM,K 3.7 mEq/L (3.5-5.1); PROTEIN TOTAL,TP 7.1 g/dl (6.4-8.2)
[2023-10-01] MEDS: Sucralfate Suspension 1 GM/10 ML Cup PO ONE (22:54)
[2023-10-01] MEDS: Pantoprazole 40 MG Tab.CR PO ONE (22:54)
[2023-10-01] MEDS ORDERED: Naloxone 0.4 MG/ML SDV IVPUSH PRN (22:57)
[2023-10-01] MEDS ORDERED: Sodium Chloride 0.9% 10 ML Syringe FLUSH PRN (22:58)
[2023-10-02] MEDS ORDERED: Naloxone 0.4 MG/ML SDV IVPUSH PRN ×2 (00:04→01:05)
[2023-10-02] MEDS: Sodium Chloride 0.9% 1,000 ML IV ONE (00:13)
[2023-10-02] MEDS: Ondansetron 4 MG/2 ML SDV IVPUSH ONE (00:16)
[2023-10-02] MEDS: HYDROmorphone 0.5 MG/0.5 ML Syringe IVPUSH ONE ×2 (00:19→00:24)
[2023-10-02] MEDS: HYDROmorphone 1 MG/ML Syringe IVPUSH ONE (01:15)
[2023-10-02] MEDS: Prochlorperazine 10 MG/2 ML SDV IVPUSH ONE (01:54)
[2023-10-02] MEDS: Prochlorperazine 10 MG/2 ML SDV ONE (02:12)
[2023-10-02] MEDS: Sodium Chloride 0.9% 1,000 ML IV SCH (04:55)
[2023-10-02] MEDS: Levothyroxine 50 MCG Tab PO SCH (06:27)
[2023-10-02] MEDS ORDERED: Docusate Sodium 100 MG Cap PO PRN (07:48)
[2023-10-02] MEDS ORDERED: Ondansetron 4 MG Tab.DIS PO PRN (07:48)
[2023-10-02 08:07] LABS: BASOPHILS PERCENT AUTO 0.1 % (0.0-1.0); HEMATOCRIT 39.2 % (37.0-47.0); HEMOGLOBIN 12.9 gm/dl (12.0-16.0); IMMATURE GRAN ABSOLUTE AUTO 0.01 K/mm3 (0.00-0.05); IMMATURE GRAN PERCENT AUTO 0.1 % (0.0-0.4); LYMPHOCYTES ABSOLUTE AUTO 0.8 K/mm3 (1.0-4.8); LYMPHOCYTES PERCENT AUTO 12.1 % (24.0-44.0); MEAN CORPUSCULAR HEMOGLOBIN 30.1 pg (28.0-32.0); MEAN CORPUSCULAR HGB CONC 32.9 g/dl (32.0-36.0); MEAN CORPUSCULAR VOLUME 91.4 fl (83.0-99.0); MEAN PLATELET VOLUME 9.8 fl (9.4-12.3); MONOCYTES ABSOLUTE AUTO 0.2 K/mm3 (0.0-0.8); NEUTROPHILS ABSOLUTE AUTO 5.9 K/mm3 (1.8-7.7); NEUTROPHILS PERCENT AUTO 84.7 % (41.0-71.0); PLATELET COUNT,PLT 202 K/mm3 (150-400); RED BLOOD CELL COUNT 4.29 M/mm3 (4.10-5.30); WHITE BLOOD CELL COUNT,WBC 6.97 K/mm3 (3.9-11.3)
[2023-10-02 08:33] LABS: A/G RATIO 1.3 (1-2); ALBUMIN 3.2 g/dl (3.4-5.0); ANION GAP 13.1 (5-15); BILIRUBIN TOTAL 0.5 mg/dL (0.2-1.0); BUN/CREATININE RATIO 18.6 (14-18); CREATININE 0.7 mg/dL (0.55-1.02); EST CRCL DRUG DOSING (CG) 49.11 mL/min; POTASSIUM,K 4.1 mEq/L (3.5-5.1); PROTEIN TOTAL,TP 5.7 g/dl (6.4-8.2)
[2023-10-02] MEDS: Heparin Sodium 5,000 Units/ML Vial SUBCUT SCH (08:35)
[2023-10-02] MEDS: ALPRAZolam 0.25 MG Tab PO SCH (08:35)
[2023-10-02] MEDS: Prochlorperazine 10 MG/2 ML SDV IVPUSH PRN (08:35)
[2023-10-02 08:42] LABS: CALCIUM 7.9 mg/dL (8.5-10.1)
[2023-10-02] MEDS: Ondansetron 4 MG/2 ML SDV IV PRN (11:51)
[2023-10-02] MEDS: HYDROmorphone 1 MG/ML Syringe IVPUSH PRN (11:51)
[2023-10-02] MEDS ORDERED: Morphine 2 MG/ML SYRINGE IVPUSH PRN (14:39)
[2023-10-02] MEDS: Pantoprazole 40 MG Vial IVPUSH SCH (15:36)
[2023-10-02] MEDS: Sucralfate Suspension 1 GM/10 ML Cup PO SCH (15:36)
[2023-10-02] MEDS: Acetaminophen 325 MG Tab PO PRN (21:44)
[2023-10-04 07:23] LABS: ALBUMIN 2.5 g/dl (3.4-5.0); ANION GAP 9.3 (5-15); BILIRUBIN TOTAL 0.4 mg/dL (0.2-1.0); CALCIUM 7.7 mg/dL (8.5-10.1); CREATININE 0.6 mg/dL (0.55-1.02); EST CRCL DRUG DOSING (CG) 57.3 mL/min; POTASSIUM,K 3.3 mEq/L (3.5-5.1)
[2023-10-04 10:48] VITALS: BP 115/68; PULSE 69
== END 2023-10-04 09:20 | disposition home or self-care (01) | DRG 439 ==
LOC: JD.ED 21:40 → JD.MS 10-02 02:01
PROVIDERS: ADMIT Hospitalist; ATTEND Hospitalist
DX: K85.90 Acute pancreatitis without necrosis or infection, unspecified (principal); K85.00 Idiopathic acute pancreatitis without necrosis or infection; N30.01 Acute cystitis with hematuria; E03.9 Hypothyroidism, unspecified; E78.00 Pure hypercholesterolemia, unspecified; Z79.899 Other long term (current) drug therapy; K59.09 Other constipation; K21.9 Gastro-esophageal reflux disease without esophagitis; F41.9 Anxiety disorder, unspecified; M81.0 Age-related osteoporosis without current pathological fracture; Z88.0 Allergy status to penicillin; Z88.2 Allergy status to sulfonamides; Z88.1 Allergy status to other antibiotic agents; Z86.16 Personal history of COVID-19; Z79.890 Hormone replacement therapy; Z87.891 Personal history of nicotine dependence; Z98.890 Other specified postprocedural states
CPT/HCPCS: 36415; 80053; 81001; 81003; 83690; 83735; 85025; 86140; 87086; 96361; 96374; 96375; 96376; 99284; A9270 ×5; J0780; J1170 ×2; J2405; J7030; 80061; 82947; 99285; C9113; J1644

== ENCOUNTER 2023-12-22 13:21 | Day surgery (SDC) | payer MEDICARE ==
[~2023-12-22 13:21] MED LIST: Cefuroxime 10 MG/ML SYRINGE EYERT SCH; Polymyxin B/Trimethoprim 10 ML Bottle EYERT SCH
[2023-12-22] MEDS: Ofloxacin 0.3% Ophth Soln 5 ML Bottle EYERT SCH (14:11)
[2023-12-22] MEDS: Brimonidine 0.2% Ophth Soln 5 ML Bottle EYERT SCH (14:15)
[2023-12-22] MEDS: Phenylephrine 2.5% Ophth Soln 2 ML Bot EYERT SCH (14:18)
[2023-12-22] MEDS: Tropicamide 1% Ophth Soln 3 ML Bottle EYERT SCH (14:21)
[2023-12-22] MEDS: Tetracaine HCl/PF 0.5% 4 ML Bottle EYEBOTH SCH (14:52)
[2023-12-22] MEDS: Lidocaine 1% PF 2 ML SDV INJECT SCH (15:07)
[2023-12-22] MEDS: Pilocarpine 4% Ophth Soln 15 ML Bot EYERT SCH (15:08)
[2023-12-22 16:11] VITALS: BP 134/84; PULSE 62
== END 2023-12-22 16:05 | disposition home or self-care (01) ==
LOC: JD.SDS 13:21
PROVIDERS: ATTEND Ophthalmology
DX: H25.813 Combined forms of age-related cataract, bilateral (principal); F41.9 Anxiety disorder, unspecified; E78.2 Mixed hyperlipidemia; K21.9 Gastro-esophageal reflux disease without esophagitis; Z87.891 Personal history of nicotine dependence; Z79.899 Other long term (current) drug therapy; Z88.2 Allergy status to sulfonamides; Z88.0 Allergy status to penicillin; Z88.1 Allergy status to other antibiotic agents
CPT/HCPCS: 66984; A9270; J3490

== ENCOUNTER 2024-01-19 10:33 | Day surgery (SDC) | payer MEDICARE ==
[2024-01-19] MEDS: Ofloxacin 0.3% Ophth Soln 5 ML Bottle EYELF SCH (11:09)
[2024-01-19] MEDS: Brimonidine 0.2% Ophth Soln 5 ML Bottle EYELF SCH (11:17)
[2024-01-19] MEDS: Phenylephrine 2.5% Ophth Soln 2 ML Bot EYELF SCH (11:20)
[2024-01-19] MEDS: Tropicamide 1% Ophth Soln 3 ML Bottle EYELF SCH (11:28)
[2024-01-19] MEDS: Tetracaine HCl/PF 0.5% 4 ML Bottle EYEBOTH SCH (12:36)
[2024-01-19] MEDS: Lidocaine 1% PF 2 ML SDV INJECT SCH (13:02)
[2024-01-19] MEDS: Cefuroxime 10 MG/ML SYRINGE EYELF SCH (13:14)
[2024-01-19] MEDS: Pilocarpine 4% Ophth Soln 15 ML Bot EYELF SCH (13:14)
[2024-01-19 13:35] VITALS: BP 119/77; PULSE 56
== END 2024-01-19 13:25 | disposition home or self-care (01) ==
LOC: JD.SDS 10:33
PROVIDERS: ATTEND Ophthalmology
DX: H25.812 Combined forms of age-related cataract, left eye (principal); H35.3131 Nonexudative age-related macular degeneration, bilateral, early dry stage; H35.363 Drusen (degenerative) of macula, bilateral; H16.103 Unspecified superficial keratitis, bilateral; H16.223 Keratoconjunctivitis sicca, not specified as Sjogren's, bilateral; H18.413 Arcus senilis, bilateral; H43.811 Vitreous degeneration, right eye; H02.831 Dermatochalasis of right upper eyelid; H02.834 Dermatochalasis of left upper eyelid; E78.2 Mixed hyperlipidemia; K21.9 Gastro-esophageal reflux disease without esophagitis; F41.9 Anxiety disorder, unspecified; Z79.899 Other long term (current) drug therapy; Z88.0 Allergy status to penicillin; Z88.2 Allergy status to sulfonamides; Z88.1 Allergy status to other antibiotic agents
CPT/HCPCS: 66984; A9270; J0697; J3490; V2632

== ENCOUNTER 2025-02-18 18:28 | Inpatient (IN) | payer MEDICARE ==
[2025-02-18] MEDS ORDERED: Sodium Chloride 0.9% 10 ML Syringe FLUSH PRN (19:07)
[2025-02-18 19:38] LABS: BASOPHILS ABSOLUTE AUTO 0.0 K/mm3 (0.0-0.2); BASOPHILS PERCENT AUTO 0.3 % (0.0-1.0); EOSINOPHILS ABSOLUTE AUTO 0.1 K/mm3 (0.0-0.4); EOSINOPHILS PERCENT AUTO 1.5 % (0.0-6.0); IMMATURE GRAN ABSOLUTE AUTO 0.01 K/mm3 (0.00-0.05); IMMATURE GRAN PERCENT AUTO 0.1 % (0.0-0.4); LYMPHOCYTES ABSOLUTE AUTO 2.8 K/mm3 (1.0-4.8); LYMPHOCYTES PERCENT AUTO 40.7 % (24.0-44.0); MEAN PLATELET VOLUME 10.3 fl (9.4-12.3); MONOCYTES ABSOLUTE AUTO 0.4 K/mm3 (0.0-0.8); MONOCYTES PERCENT AUTO 6.0 % (0.0-8.0); NEUTROPHILS ABSOLUTE AUTO 3.5 K/mm3 (1.8-7.7); NEUTROPHILS PERCENT AUTO 51.4 % (41.0-71.0); NRBC ABSOLUTE 0.00 (0.00-0.02); NRBC PERCENT 0.0 % (0.0-0.2); PLATELET COUNT,PLT 200 K/mm3 (150-400); RED BLOOD CELL COUNT 4.66 M/mm3 (4.10-5.30); WHITE BLOOD CELL COUNT,WBC 6.85 K/mm3 (3.9-11.3)
[2025-02-18 20:04] LABS: A/G RATIO 1.3 (1-2); ALANINE AMINOTRANSFERASE,ALT 41 U/L (14-59); ASPARTATE AMNIOTRANSFERASE,AST 21 U/L (15-37); BILIRUBIN TOTAL 0.5 mg/dL (0.2-1.0); BLOOD UREA NITROGEN,BUN 13 mg/dL (7-18); CARBON DIOXIDE,CO2 30 mEq/L (21-32); CHLORIDE,CL 104 mEq/L (98-107); CREATININE 0.7 mg/dL (0.55-1.02); EST CRCL DRUG DOSING (CG) 48.34 mL/min; ESTIMATED GFR 89 mL/min (>60); GLUCOSE RANDOM 107 mg/dL (70-99); POTASSIUM,K 3.6 mEq/L (3.5-5.1); PROTEIN TOTAL,TP 6.9 g/dl (6.4-8.2); SODIUM,NA 142 mEq/L (136-145)
[2025-02-18] MEDS: Iopamidol 612 MG/ML 100 ML Bottle IVPUSH ONE (20:44)
[2025-02-18] MEDS: Ondansetron 4 MG/2 ML SDV IVPUSH ONE (20:52)
[2025-02-18] MEDS ORDERED: Naloxone 0.4 MG/ML SDV IVPUSH PRN (22:06)
[2025-02-18] MEDS: Acetaminophen/oxyCODONE 325-5 MG Tab PO PRN (22:24)
[2025-02-18] MEDS: Lactated Ringers 1,000 ML IV ONE (22:25)
[2025-02-18] MEDS: Ondansetron 4 MG/2 ML SDV IVPUSH PRN (23:33)
[2025-02-19 07:26] LABS: BASOPHILS ABSOLUTE AUTO 0.0 K/mm3 (0.0-0.2); BASOPHILS PERCENT AUTO 0.3 % (0.0-1.0); EOSINOPHILS ABSOLUTE AUTO 0.0 K/mm3 (0.0-0.4); EOSINOPHILS PERCENT AUTO 0.0 % (0.0-6.0); IMMATURE GRAN ABSOLUTE AUTO 0.02 K/mm3 (0.00-0.05); IMMATURE GRAN PERCENT AUTO 0.3 % (0.0-0.4); LYMPHOCYTES ABSOLUTE AUTO 1.1 K/mm3 (1.0-4.8); LYMPHOCYTES PERCENT AUTO 14.7 % (24.0-44.0); MEAN PLATELET VOLUME 10.7 fl (9.4-12.3); MONOCYTES ABSOLUTE AUTO 0.6 K/mm3 (0.0-0.8); MONOCYTES PERCENT AUTO 8.1 % (0.0-8.0); NEUTROPHILS ABSOLUTE AUTO 5.6 K/mm3 (1.8-7.7); NEUTROPHILS PERCENT AUTO 76.6 % (41.0-71.0); NRBC ABSOLUTE 0.00 (0.00-0.02); NRBC PERCENT 0.0 % (0.0-0.2); PLATELET COUNT,PLT 155 K/mm3 (150-400); RED BLOOD CELL COUNT 4.28 M/mm3 (4.10-5.30); WHITE BLOOD CELL COUNT,WBC 7.30 K/mm3 (3.9-11.3)
[2025-02-19 08:15] LABS: A/G RATIO 1.3 (1-2); BILIRUBIN TOTAL 1.3 mg/dL (0.2-1.0); BLOOD UREA NITROGEN,BUN 10.0 mg/dL (7-18); CARBON DIOXIDE,CO2 28.0 mEq/L (21-32); CHLORIDE,CL 106.0 mEq/L (98-107); CREATININE 0.7 mg/dL (0.55-1.02); EST CRCL DRUG DOSING (CG) 48.34 mL/min; ESTIMATED GFR 89.0 mL/min (>60); GLUCOSE RANDOM 119.0 mg/dL (70-99); PHOSPHORUS 3.5 mg/dL (2.6-4.7); POTASSIUM,K 3.8 mEq/L (3.5-5.1); PROTEIN TOTAL,TP 6.2 g/dl (6.4-8.2); SODIUM,NA 142.0 mEq/L (136-145)
[2025-02-19 08:48] LABS: ALANINE AMINOTRANSFERASE,ALT 1548.0 U/L (14-59); ASPARTATE AMNIOTRANSFERASE,AST 1861.0 U/L (15-37)
[2025-02-19] MEDS: Gadobenate Dimeglumine 529 MG/ML 15 ML SDV IVPUSH ONE (12:30)
[2025-02-19] MEDS: Sodium Chloride 0.9% 10 ML Syringe FLUSH SCH (12:30)
[2025-02-20 04:39] LABS: BASOPHILS ABSOLUTE AUTO 0.0 K/mm3 (0.0-0.2); BASOPHILS PERCENT AUTO 0.4 % (0.0-1.0); EOSINOPHILS ABSOLUTE AUTO 0.0 K/mm3 (0.0-0.4); EOSINOPHILS PERCENT AUTO 0.8 % (0.0-6.0); IMMATURE GRAN ABSOLUTE AUTO 0.01 K/mm3 (0.00-0.05); IMMATURE GRAN PERCENT AUTO 0.2 % (0.0-0.4); LYMPHOCYTES ABSOLUTE AUTO 1.7 K/mm3 (1.0-4.8); LYMPHOCYTES PERCENT AUTO 34.8 % (24.0-44.0); MEAN PLATELET VOLUME 11.1 fl (9.4-12.3); MONOCYTES ABSOLUTE AUTO 0.4 K/mm3 (0.0-0.8); MONOCYTES PERCENT AUTO 8.0 % (0.0-8.0); NEUTROPHILS ABSOLUTE AUTO 2.7 K/mm3 (1.8-7.7); NEUTROPHILS PERCENT AUTO 55.8 % (41.0-71.0); NRBC ABSOLUTE 0.00 (0.00-0.02); NRBC PERCENT 0.0 % (0.0-0.2); PLATELET COUNT,PLT 130 K/mm3 (150-400); RED BLOOD CELL COUNT 3.80 M/mm3 (4.10-5.30); WHITE BLOOD CELL COUNT,WBC 4.86 K/mm3 (3.9-11.3)
[2025-02-20 04:52] LABS: INR 1.16
[2025-02-20 05:17] LABS: A/G RATIO 1.1 (1-2); ASPARTATE AMNIOTRANSFERASE,AST 613.0 U/L (15-37); BILIRUBIN TOTAL 0.7 mg/dL (0.2-1.0); BLOOD UREA NITROGEN,BUN 7.0 mg/dL (7-18); CARBON DIOXIDE,CO2 27.0 mEq/L (21-32); CHLORIDE,CL 111.0 mEq/L (98-107); CREATININE 0.5 mg/dL (0.55-1.02); EST CRCL DRUG DOSING (CG) 67.68 mL/min; ESTIMATED GFR 97.0 mL/min (>60); GLUCOSE RANDOM 87.0 mg/dL (70-99); POTASSIUM,K 3.5 mEq/L (3.5-5.1); PROTEIN TOTAL,TP 5.1 g/dl (6.4-8.2); SODIUM,NA 144.0 mEq/L (136-145)
[2025-02-20 05:29] LABS: ALANINE AMINOTRANSFERASE,ALT 1067.0 U/L (14-59)
[2025-02-20] MEDS: Magnesium Sulfate 2 GM/50 mL 2 GM in Premix Bag 1 BAG IV ONE (08:04)
[2025-02-20] MEDS: Sucralfate Suspension 1 GM/10 ML Cup PO PRN (13:55)
[2025-02-21 04:36] LABS: BASOPHILS ABSOLUTE AUTO 0.0 K/mm3 (0.0-0.2); BASOPHILS PERCENT AUTO 0.6 % (0.0-1.0); EOSINOPHILS ABSOLUTE AUTO 0.1 K/mm3 (0.0-0.4); EOSINOPHILS PERCENT AUTO 1.3 % (0.0-6.0); IMMATURE GRAN ABSOLUTE AUTO 0.02 K/mm3 (0.00-0.05); IMMATURE GRAN PERCENT AUTO 0.3 % (0.0-0.4); LYMPHOCYTES ABSOLUTE AUTO 2.4 K/mm3 (1.0-4.8); LYMPHOCYTES PERCENT AUTO 38.0 % (24.0-44.0); MEAN PLATELET VOLUME 10.9 fl (9.4-12.3); MONOCYTES ABSOLUTE AUTO 0.6 K/mm3 (0.0-0.8); MONOCYTES PERCENT AUTO 9.2 % (0.0-8.0); NEUTROPHILS ABSOLUTE AUTO 3.1 K/mm3 (1.8-7.7); NEUTROPHILS PERCENT AUTO 50.6 % (41.0-71.0); NRBC ABSOLUTE 0.00 (0.00-0.02); NRBC PERCENT 0.0 % (0.0-0.2); PLATELET COUNT,PLT 128 K/mm3 (150-400); RED BLOOD CELL COUNT 3.78 M/mm3 (4.10-5.30); WHITE BLOOD CELL COUNT,WBC 6.19 K/mm3 (3.9-11.3)
[2025-02-21] MEDS ORDERED: Metoprolol Tartrate 5 MG/5 ML SDV IVPUSH ONE (04:43)
[2025-02-21] MEDS ORDERED: Metoprolol Tartrate 5 MG/5 ML SDV IV ONE (04:45)
[2025-02-21] MEDS: Metoprolol Tartrate 5 MG/5 ML SDV IVPUSH ONE (05:02)
[2025-02-21 05:09] LABS: A/G RATIO 1.1 (1-2); ALANINE AMINOTRANSFERASE,ALT 697.0 U/L (14-59); ASPARTATE AMNIOTRANSFERASE,AST 204.0 U/L (15-37); BILIRUBIN TOTAL 0.7 mg/dL (0.2-1.0); BLOOD UREA NITROGEN,BUN 5.0 mg/dL (7-18); CARBON DIOXIDE,CO2 27.0 mEq/L (21-32); CHLORIDE,CL 107.0 mEq/L (98-107); CREATININE 0.5 mg/dL (0.55-1.02); EST CRCL DRUG DOSING (CG) 67.68 mL/min; ESTIMATED GFR 97.0 mL/min (>60); GLUCOSE RANDOM 95.0 mg/dL (70-99); POTASSIUM,K 2.8 mEq/L (3.5-5.1); PROTEIN TOTAL,TP 5.2 g/dl (6.4-8.2); SODIUM,NA 143.0 mEq/L (136-145)
[2025-02-21] MEDS: Magnesium Sulf/Wat 4 GM/50 mL 4 GM in Premix Bag 1 BAG IV ONE (08:37)
[2025-02-21 10:12] LABS: TSH 5.914 uIU/mL (0.358-3.74)
[2025-02-21 10:42] LABS: T4 FREE 1.2 ng/dL (0.76-1.46)
[2025-02-21 14:46] LABS: IGA, SERUM 111 mg/dL (40-350); IGM, SERUM 55 mg/dL (50-300)
[2025-02-21 16:38] VITALS: BP 139/93; PULSE 65
[2025-02-22 10:47] LABS: HAV AB IGM Negative (Negative); HBC IGM Negative (Negative); HEP B SURG AG Negative (Negative); HEP C AB BY CIA Negative (Negative); HEP C AB BY CIA INDEX <0.02 IV
[2025-02-23 04:47] LABS: ANA BY ELISA, IGG W/RFX TO IFA None Detected (None Detected)
== END 2025-02-21 15:55 | disposition home or self-care (01) | DRG 440 ==
LOC: JD.ED 18:28 → JD.MS 22:05
PROVIDERS: ADMIT Student in an Organized Health Care Education/Training Program; ATTEND Family Medicine
DX: K85.90 Acute pancreatitis without necrosis or infection, unspecified (principal); K21.9 Gastro-esophageal reflux disease without esophagitis; K44.9 Diaphragmatic hernia without obstruction or gangrene; E03.9 Hypothyroidism, unspecified; F41.9 Anxiety disorder, unspecified; R74.01 Elevation of levels of liver transaminase levels; E80.6 Other disorders of bilirubin metabolism; E83.42 Hypomagnesemia; E87.6 Hypokalemia; I48.91 Unspecified atrial fibrillation; H54.7 Unspecified visual loss; E78.00 Pure hypercholesterolemia, unspecified; K59.00 Constipation, unspecified; M81.0 Age-related osteoporosis without current pathological fracture; Z90.49 Acquired absence of other specified parts of digestive tract; Z88.0 Allergy status to penicillin; Z88.8 Allergy status to other drugs, medicaments and biological substances; Z79.899 Other long term (current) drug therapy; Z88.2 Allergy status to sulfonamides; Z98.890 Other specified postprocedural states
CPT/HCPCS: 36415; 74177; 74177-26; 74183; 74183-26; 76705; 76705-26; 80053; 80074; 82784; 82947; 83690; 83735; 84100; 84439; 84443; 84478; 84484; 85025; 85610; 86038; 86140; 86381; 93005; 93010; 93306; 96374; 99285; 99285-25; A9270-GY; A9577; J1171; J1650; J2405; J2765; J3475; J3480; J3490; J7030; J7120; Q9967